=== PATIENT | male | born 1940 | race Caucasian/White ===

== ENCOUNTER 2021-09-14 09:25 | Inpatient (IN) | payer MEDICARE, OTHER ==
[~2021-09-14] VITALS: Ht 165 cm; Wt 90.0 kg
[2021-09-14] MEDS ORDERED: NS IV 1000 ML 1,000 ML IV STA ×2 (09:37→11:39)
[2021-09-14] MEDS ORDERED: PANTOPRAZOLE 40 MG (PROTONIX) VIAL IV STA (09:37)
[2021-09-14] MEDS ORDERED: fentaNYL INJ 100 MCG/2 ML AMP IVP STA ×3 (09:37→12:45)
[2021-09-14] MEDS ORDERED: ONDANSETRON 4 MG/2 ML (SDV) Z0FRAN IVP STA (09:37)
--- NOTE | 2021-09-14 09:50 | ED GI ---
General Chief Complaint: Abdominal/GI Problems Stated Complaint: ABD PAIN Source of Information: Patient History of Present Illness Date Seen by Provider: Sep 14, 2021 Time Seen by Provider: 09:29 Initial Comments 80-year-old male presenting with complaints of diffuse abdominal pain, nausea, vomiting present x2 days. He denies fever or chills. He states he has not been able to keep even water down. He has a history of high blood pressure and neuropathy. He denies any past surgeries to his abdomen. He had a small bowel movement yesterday morning but has had no bowel movement since then and states he has been passing only very small amounts of gas. He has had decreased urine output since he is not drinking as much fluid. He denies any pain or burning with urination. He denied having any black or tarry stools. He has had no blood in his urine. He denies having any chest pain. He denies having symptoms like this in the past. He initially thought it might be food poisoning from eating some [place] food on Saturday night however no one else that ate the food had any issues. Timing/Duration: 1-2 Days Severity/Quality: Severe, Aching Location: Generalized Abdomen Activities at Onset: None Modifying Factors: Worsens With Movement, Worsens With Palpation Associated Symptoms: No Back Pain, No Chest Pain, No Diaphoresis, No Fever/Chills, No Fatigue, No Headache, No Heartburn; Nausea/Vomiting; No Rash, No Shortness of Air, No Swelling/Mass in Abdomen, No Syncope, No Weakness Allergies and Home Medications Allergies Coded Allergies: No Known Drug Allergies (Unverified , 09/14/21) Patient Home Medication List Home Medication List Reviewed: Yes Amlodipine Besylate (Amlodipine Besylate) 10 Mg Tablet, 10 MG PO DAILY, (Reported) Entered as Reported by: PHU SUAREZ on 09/14/21 1045 Last Action: Reviewed Gabapentin (Neurontin) 300 Mg Capsule, 600 MG PO DAILY, (Reported) Entered as Reported by: BHAVANA SPEARS on 09/14/211511 Last Action: Reviewed Omeprazole Magnesium (Prilosec Otc) 20 Mg Tablet.dr, 20 MG PO DAILY, (Reported) Entered as Reported by: BHAVANA SPEARS on 09/14/211511 Last Action: Reviewed Oxycodone HCl (Oxycodone HCl) 5 Mg Tablet, 5 MG PO BID PRN for PAIN-SEVERE (8- 10), (Reported) Entered as Reported by: BHAVANA SPEARS on 09/14/211511 Last Action: Reviewed Vit A/Vit C/Vit E/Zinc/Copper (Eye Multivitamin Tablet) 1 Each Tablet, 1 EACH PO DAILY, (Reported) Entered as Reported by: BHAVANA SPEARS on 09/14/211511 Last Action: Reviewed Discontinued Medications Gabapentin (Gabapentin) 300 Mg/6 Ml Solution, 300 MG PO, (Reported) Discontinued Reason: No Longer Taking Entered as Reported by: PHU SUAREZ on 09/14/211044 Last Action: Discontinued Omeprazole Magnesium (Prilosec) 10 Mg Suspdr.pkt, 10 MG PO, (Reported) Discontinued Reason: Prescription changed Entered as Reported by: PHU SUAREZ on 09/14/211044 Last Action: New Order Oxycodone HCl/Acetaminophen (Oxycodone-Acetaminophen 5-325) 1 Each Tablet, 1 EACH PO Q4H PRN for PAIN-SEVERE, (Reported) Discontinued Reason: No Longer Taking Entered as Reported by: PHU SUAREZ on 09/14/211044 Last Action: Discontinued Review of Systems Review of Systems Constitutional: No chills, No fever EENTM: No Symptoms Reported Respiratory: No Symptoms Reported Cardiovascular: No Symptoms Reported Gastrointestinal: See HPI Genitourinary: See HPI Musculoskeletal: no symptoms reported Skin: no symptoms reported Psychiatric/Neurological: See HPI Past Kjkjrss-Zizbbt-Komqsn Hx Patient Social History Tobacco Use?: No Use of E-Cig and/or Vaping dev: No Substance use?: No Alcohol Use?: Yes Alcohol type: Beer, Hard Liquor Alcohol Frequency: Daily Pt feels they are or have been: No Immunizations Up To Date First/Initial COVID19 Vaccinat: NOV 2020 Second COVID19 Vaccination Luis: DEC 2020 COVID19 Vaccine Mechanic Senior: ELIE Past Medical History Surgery/Hospitalization HX: HTN, NEUROPATHY Surgeries: Yes Orthopedic (hip and lumbar spine) Respiratory: No Cardiac: Yes Hypertension Neurological: Yes Neuropathy Genitourinary: No Gastrointestinal: No Musculoskeletal: Yes Arthritis Endocrine: No HEENT: No Cancer: No Psychosocial: No Physical Exam Vital Signs Vital Signs - First Documented 09/14/21 09:30 Temp 36.3 Pulse 99 Resp 18 B/P (MAP) 175/84 (114) Pulse Ox 94 O2 Delivery Room Air Capillary Refill : Height/Weight/BMI Height: '" Weight: lbs. oz. 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 Focused Exam Lactate Level 09/14/21 09:40: Lactic Acid Level 1.60 Lactic Acid Level Laboratory Tests Test 09/14/21 09:40 Lactic Acid Level 1.60 MMOL/L (0.50-2.00) Progress/Results/Core Measures Results/Orders Lab Results Laboratory Tests Test 09/14/21 09:40 09/14/21 10:04 Range/Units White Blood Count 11.1 H 4.3-11.0 10^3/uL Red Blood Count 4.90 4.30-5.52 10^6/uL Hemoglobin 15.3 13.3-17.7 g/dL Hematocrit 45 40-54 % Mean Corpuscular Volume 92 80-99 fL Mean Corpuscular Hemoglobin 31 25-34 pg Mean Corpuscular Hemoglobin Concent 34 32-36 g/dL Red Cell Distribution Width 14.5 10.0-14.5 % Platelet Count 217 130-400 10^3/uL Mean Platelet Volume 9.5 9.0-12.2 fL Immature Granulocyte % (Auto) 0 % Neutrophils (%) (Auto) 61 42-75 % Lymphocytes (%) (Auto) 34 12-44 % Monocytes (%) (Auto) 4 0-12 % Eosinophils (%) (Auto) 0 0-10 % Basophils (%) (Auto) 0 0-10 % Neutrophils # (Auto) 6.8 1.8-7.8 X 10^3 Lymphocytes # (Auto) 3.8 1.0-4.0 X 10^3 Monocytes # (Auto) 0.5 0.0-1.0 X 10^3 Eosinophils # (Auto) 0.0 0.0-0.3 10^3/uL Basophils # (Auto) 0.0 0.0-0.1 10^3/uL Immature Granulocyte # (Auto) 0.0 0.0-0.1 10^3/uL Prothrombin Time 12.5 12.2-14.7 SEC INR Comment 0.9 0.8-1.4 Activated Partial Thromboplast Time 30 24-35 SEC Sodium Level 140 135-145 MMOL/L Potassium Level 4.0 3.6-5.0 MMOL/L Chloride Level 102 98-107 MMOL/L Carbon Dioxide Level 25 21-32 MMOL/L Anion Gap 13 5-14 MMOL/L Blood Urea Nitrogen 14 7-18 MG/DL Creatinine 0.71 0.60-1.30 MG/DL Estimat Glomerular Filtration Rate 106 BUN/Creatinine Ratio 20 Glucose Level 152 H 70-105 MG/DL Lactic Acid Level 1.60 0.50-2.00 MMOL/L Calcium Level 9.9 8.5-10.1 MG/DL Corrected Calcium 8.5-10.1 MG/DL Total Bilirubin 1.0 0.1-1.0 MG/DL Aspartate Amino Transf (AST/SGOT) 19 5-34 U/L Alanine Aminotransferase (ALT/SGPT) 19 0-55 U/L Alkaline Phosphatase 62 40-136 U/L Troponin I < 0.30 <0.30 NG/ML Total Protein 6.7 6.4-8.2 GM/DL Albumin 4.6 H 3.2-4.5 GM/DL Lipase 19 8-78 U/L Serum Alcohol < 10 <10 MG/DL Urine Color YELLOW Urine Clarity CLOUDY Urine pH 5.5 5-9 Urine Specific [place] >=1.030 1.016-1.022 Urine Protein 1+ H NEGATIVE Urine Glucose (UA) NEGATIVE NEGATIVE Urine Ketones 2+ H NEGATIVE Urine Nitrite POSITIVE H NEGATIVE Urine Bilirubin NEGATIVE NEGATIVE Urine Urobilinogen 0.2 < = 1.0 MG/DL Urine Leukocyte Esterase TRACE H NEGATIVE Urine RBC (Auto) NEGATIVE NEGATIVE Urine RBC NONE /HPF Urine WBC 50-100 H /HPF Urine Squamous Epithelial Cells RARE /HPF Urine Crystals NONE /LPF Urine Bacteria LARGE H /HPF Urine Casts NONE /LPF Urine Mucus LARGE H /LPF Urine Culture Indicated YES My Orders Orders - LINDSEY LINDSAY MD Comprehensive Metabolic Panel (09/14/21 09:37) Lipase (09/14/21 09:37) Ua Culture If Indicated (09/14/21 09:37) Ed Iv/Invasive Line Start (09/14/21 09:37) Cbc With Automated Diff (09/14/21 09:37) Ct Abdomen/Pelvis W (09/14/21 09:37) Lactic Acid Analyzer (09/14/21 09:37) Protime With Inr (09/14/21:37) Partial Thromboplastin Time (09/14/21 09:37) Ns Iv 1000 Ml (Sodium Chloride 0.9%) (09/14/21 09:37) Ondansetron Injection (Zofran Injectio (09/14/21 09:37) Pantoprazole Injection (Protonix Injecti (09/14/21 09:37) Fentanyl Inj (Sublimaze Injection) (09/14/21 09:37) Alcohol (09/14/21 09:37) Ekg Tracing (09/14/21 09:37) Monitor-Rhythm Ecg Trace Only (09/14/21 09:37) Troponin I Fs (09/14/21 09:37) Iohexol Injection (Omnipaque 350 Mg/Ml 1 (09/14/21 10:30) Received Contrast (Hold Metformin- Contr (09/14/21 10:30) Sodium Chloride Flush (Catheter Flush Sy (09/14/21 10:30) Ns (Ivpb) (Sodium Chloride 0.9% Ivpb Bag (09/14/21 10:30) Urine Culture (09/14/21 10:04) Ceftriaxone (Rocephin) (09/14/21 11:39) Ns Iv 1000 Ml (Sodium Chloride 0.9%) (09/14/21 11:39) Fentanyl Inj (Sublimaze Injection) (09/14/21 11:39) Ng Tube Insert & Assessment (09/14/21 11:39) Ng Tube To Low Wall Suction (09/14/21 11:39) Metoclopramide Injection (Reglan Injecti (09/14/21 12:02) Chest 1 View Ap/Pa Only (09/14/21 12:05) Abdomen (Kub) 1 View (09/14/21 12:12) Fentanyl Inj (Sublimaze Injection) (09/14/21 12:45) Medications Given in ED Current Medications Medications Dose Ordered Sig/Sherlyn Route Start Time Stop Time Status Last Admin Dose Admin Iohexol 100 ml ONCE ONCE IV 09/14/21 10:30 09/14/21 10:31 DC 09/14/21 10:38 100 ML Sodium Chloride 10 ml NEEDED PRN IV 09/14/21 10:30 09/14/21 14:11 DC 09/14/21 10:38 10 ML Sodium Chloride 100 ml ONCE ONCE IV 09/14/21 10:30 09/14/21 10:31 DC 09/14/21 10:38 100 ML Vital Signs/I&O 09/14/21 09/14/21 09:30 12:29 Temp 36.3 36.0 Pulse 99 90 Resp 18 18 B/P (MAP) 175/84 (114) 166/87 Pulse Ox 94 95 O2 Delivery Room Air Room Air Progress Progress Note #1: Progress Note Obtain labs, urine, ECG to evaluate for possible cardiac source of symptoms with hx of hypertension. CT scan of abdomen/pelvis to look for obstruction, infection, diverticulitis, appendicitis, cholecystitis, colitis, pyelonephritis. Give IVF for hydration, Zofran for nausea, Pantoprazole for gastric irritation from his vomiting, Fentanyl for pain. Progress Note #2: Time: 10:21 Progress Note CBC shows the white blood cell count at the upper limit of normal at 11.1. He has no acute significant normality on his chemistry panel, but his glucose was slightly up at 152. Troponin is <0.3. His alcohol level was zero. His electrocardiogram showed a sinus or ectopic atrial rhythm but he had multiform PVCs. After medications and treatment in the ED he states that his pain has improved down to 2 or 3 out of 10. Awaiting UA results. Pt going to CT scan now. Progress Note #3: Time: 10:39 Progress Note Urinalysis shows he is dehydrated with elevated specific gravity > 1.030 and ketones, signs of infection with Nit, LE, WBC and Large amount of bacteria. Culture was reflexed. Awaiting CT scan results but will start antibiotic for his UTI. He has normal Lactic acid of 1.6. Progress Note #4: Time: 11:[address] scan shows findings for small bowel obstruction with transition point. He has cecum attachment to LUQ instead of RLQ. Will update pt and family. Will again check about any surgery to abdomen. Anticipate admit to [facility]. When reviewing results with the patient and his family he again denied any history of surgery. He states that he had a procedure while he was in the [employer] where they had put a tube in his stomach for something. He reported that when I describe the NG tube and how that was placed and it's purpose. We will repeat fentanyl 50 mcg to help with pain prior to placement of the NG tube. Will call Dr. Romero with the hospitalist service about admission Progress Note #5: Time: 11:51 Progress Note Discussed with Dr. Romero for the hospitalist service and she accepted the patient for admission. She stated that she would call Dr. Fink the surgeon food concession manager about consult. Will continue with nothing by mouth and give patient IV fluids for hydration. He did have some difficulty with trying to advance the NG tube past the GE junction. He was having gagging and dry heaves when attempting to do this so given a dose of Reglan. Repeat dose of Fentanyl given prior to transport with EMS. His requested that we call [employer], his insurance company, about the ED visit and admit since that is what it told her to do on the back of his i nsurance card. However, after being on hold for extended period of time I finally reached client support professional for [employer] and they advised me that with him being out of [facility] receiving care they did not need to speak with me. The first person I spoke with transferred me to [facility] and they told me that the admitting office of the hospital, once he was admitted would need to be the ones to contact them about the case for the patient. I passed this information on to the nurses so they could let admitting know. Initial ECG Impression Date: Sep 14, 2021 Initial ECG Impression Time: 10:00 Initial ECG Rate: 86 Initial ECG Rhythm: Normal Sinus Initial ECG Comparisson: No Previous ECG Available Comment Sinus or ectopic atrial rhythm of 86 bpm. Prolonged GA interval of 249 ms. Multiform PVCs. QT interval 434 ms with a QTc interval 519 ms. Right bundle branch block with a left anterior fascicular block. He appears to have a sinus pause. There is no acute ST elevation. He has no prior tracing available for comparison. Diagnostic Imaging Diagonstic Imaging: CT Plain Films/CT/US/NM/MRI: abdomen, pelvis Comments NAME: [facility] REC#: [id number] PT STATUS: REG ER : 1940 PHYSICIAN: LINDSEY LINDSAY MD ADMIT DATE: 09/14/21/ER FS Draft Date of Exam:09/14/21 CT ABDOMEN/PELVIS W CT ABDOMEN/PELVIS W TECHNIQUE: Multiple contiguous axial images were obtained through the abdomen and pelvis after administration of intravenous contrast. All CT scans use one or more of the following dose optimizing techniques: automated exposure control, MA and/or KvP adjustment based on patient size and exam type or iterative reconstruction. INDICATION: Nausea vomiting COMPARISON: None available. FINDINGS: Lower chest: Trace right pleural effusion with minimal right basilar subsegmental atelectasis. Peritoneum: Small volume of free fluid is present with the abdomen, predominantly under the right hemidiaphragm. No free intraperitoneal air. Liver and biliary system: The liver is normal. The gallbladder is normal. No biliary duct dilation. Spleen and Pancreas: Spleen is normal. The pancreas enhances normally without mass lesion or peripancreatic inflammatory changes. Adrenals: Normal. tract: The kidneys enhance normally without suspicious mass or obstruction. Urinary bladder is distended without wall thickening. Prostate is borderline enlarged. GI tract: Moderate sized hiatal hernia. Small bowel loops are fluid-filled and dilated measuring up to 3.5 cm. There is likely a transition point in the left upper quadrant Colon is decompressed. The appendix is not visualized. Vasculature and Lymph nodes: Normal caliber aorta. No abdominal or pelvic lymphadenopathy. Musculoskeletal: No concerning osseous lesion. IMPRESSION: 1. Small bowel obstruction with transition point in the left upper quadrant. The distal small bowel loops are decompressed. Of note, the cecum does not have its normal attachment in the right lower quadrant and is positioned in the right upper quadrant. 2. No perforation or abscess. Dictated on workstation # [id number] Dict: 09/14/21 1049 Trans: 09/14/21 1110 [facility] [id number] Interpreted by: JOSH SHAVER MD Electronically signed by: Reviewed: Reviewed by Wi Diagonstic Imaging: Xray Plain Films/CT/US/NM/MRI: chest, abdomen Comments [facility] [place] NAME: [facility]ETT [facility] REC#: [id number] PT STATUS: REG ER : 1940 PHYSICIAN: LINDSEY LINDSAY MD ADMIT DATE: 09/14/21/ER FS Signed Date of Exam:09/14/21 CHEST 1 VIEW AP/PA ONLY INDICATION: Check NG tube placement EXAMINATION: Chest 09/14/2021 FINDINGS: There is a feeding tube with the tip likely at the junction of the esophagus and stomach. Continued advancement is advised. Heart is unremarkable. Pulmonary vasculature normal. There is bibasal atelectasis. No effusions. No pneumothorax. IMPRESSION: 1. Bibasilar atelectasis with otherwise no acute cardiopulmonary process. 2. Feeding tube tip appears to lie at the GE junction. Dictated by: Dictated on workstation # [id number] Dict: 09/14/21 1231 Trans: 09/14/21 1325 [facility] [id number] Interpreted by: NORMA ALANIS MD Electronically signed by: NORMA ALANIS MD 09/14/21 1325 [facility] [place] NAME: [facility]MMETT [facility] REC#: [id number] PT STATUS: ADM IN : 1940 PHYSICIAN: LINDSEY LINDSAY MD ADMIT DATE: 09/14/21 Signed Date of Exam:09/14/21 ABDOMEN (KUB) 1 VIEW INDICATION: Verify NG tube placement. COMPARISON: Imaging from the same date. TECHNIQUE: Single radiograph of the upper abdomen with two different techniques is obtained dated 09/14/2021. FINDINGS: Enteric catheter is present with the distal tip extending to the expected location of the GE junction with the sidehole within the distal esophagus. Loops of dilated bowel are noted within the upper abdomen. Postsurgical changes within the lumbar spine. Scattered osseous degenerative changes without acute osseous abnormality. IMPRESSION: Enteric catheter is present with the distal tip near the GE junction and the sidehole overlying the distal esophagus. Advancement of approximately 11 cm is recommended so that the sidehole and distal tip are within the stomach. Persistent dilated loops of bowel, concerning for bowel obstruction. Dictated by: Dictated on workstation # [id number] Dict: 09/14/21 1236 Trans: 09/14/21 1454 [id number] Interpreted by: ADRIAN BECKER MD Electronically signed by: ADRIAN BECKER MD 09/14/21 1454 Reviewed: Reviewed by Me Departure Communication (Admissions) Time/Spoke to Admitting Phy: 11:51 d/w Dr. Romero and will admit to Hospitalist service for small bowel obstruction and UTI. Since he has had some PVCs will monitor on telemetry as well. She will contact Dr. Fink about consult for the patient. Impression Primary Impression: Small bowel obstruction Additional Impressions: Acute cystitis without hematuria Diffuse abdominal pain Nausea and vomiting in adult patient Disposition: 30 STILL A PATIENT Condition: Stable Admissions Decision to Admit Reason: Admit from ER (General) Decision to Admit/Date: Sep 14, 2021 Time/Decision to Admit Time: 11:51 Departure-Patient Inst. Referrals: NO,LOCAL PHYSICIAN (PCP/Family) Primary Care Physician LINDSEY LINDSAY MD Sep 14, 2021 09:50
[2021-09-14 10:09] LABS: HEMATOCRIT 45 % (40-54); HEMOGLOBIN 15.3 g/dL (13.3-17.7); MEAN CORPUSCULAR HEMOGLOBIN 31 pg (25-34); MEAN CORPUSCULAR HGB CONC 34 g/dL (32-36); MEAN CORPUSCULAR VOLUME 92 fL (80-99); MEAN PLATELET VOLUME 9.5 fL (9.0-12.2); PLATELET COUNT 217 10^3/uL (130-400); WHITE BLOOD COUNT 11.1 10^3/uL (4.3-11.0)
[2021-09-14 10:10] LABS: BASOPHILS % (AUTO) 0 % (0-10); EOSINOPHILS % (AUTO) 0 % (0-10); LYMPHOCYTES # (AUTO) 3.8 X 10^3 (1.0-4.0); LYMPHOCYTES % (AUTO) 34 % (12-44); MONOCYTES # (AUTO) 0.5 X 10^3 (0.0-1.0); MONOCYTES % (AUTO) 4 % (0-12); NEUTROPHILS # (AUTO) 6.8 X 10^3 (1.8-7.8); NEUTROPHILS % (AUTO) 61 % (42-75)
[2021-09-14 10:14] LABS: INR 0.9 (0.8-1.4); PROTHROMBIN TIME PATIENT 12.5 SEC (12.2-14.7)
[2021-09-14 10:18] LABS: BUN/CREATININE RATIO 20; CARBON DIOXIDE 25 MMOL/L (21-32); CHLORIDE 102 MMOL/L (98-107); CREATININE SERUM 0.71 MG/DL (0.60-1.30); GFR ESTIMATED 106; GLUCOSE 152 MG/DL (70-105); SODIUM 140 MMOL/L (135-145)
[2021-09-14 10:19] LABS: ALANINE AMINOTRANSFERASE 19 U/L (0-55); ALBUMIN 4.6 GM/DL (3.2-4.5); ALKALINE PHOSPHATASE 62 U/L (40-136); CALCIUM 9.9 MG/DL (8.5-10.1); LIPASE 19 U/L (8-78); TOTAL PROTEIN 6.7 GM/DL (6.4-8.2)
[2021-09-14 10:26] LABS: BILIRUBIN,URINE NEGATIVE (NEGATIVE); CLARITY,URINE CLOUDY; COLOR,URINE YELLOW; GLUCOSE, URINE (UA) NEGATIVE (NEGATIVE); KETONES,URINE 2+ (NEGATIVE); LEUKOCYTE ESTERASE ,URINE TRACE (NEGATIVE); NITRITE,URINE POSITIVE (NEGATIVE); PH,URINE 5.5 (5-9); PROTEIN,URINE 1+ (NEGATIVE)
[2021-09-14] MEDS ORDERED: CATHETER FLUSH 10 ML SYR IV PRN ×2 (10:30→14:15)
[2021-09-14] MEDS ORDERED: IOHEXOL 350 MG/ML 100 ML (OMNIPAQUE 350) VIAL IV ONE (10:30)
[2021-09-14] MEDS ORDERED: HOLD METFORMIN - RECEIVED CONTRAST 20 ML VIAL IV SCH (10:30)
[2021-09-14] MEDS ORDERED: NS 100 ML (IVPB) BAG IV ONE (10:30)
[2021-09-14 10:33] LABS: BACTERIA,URINE LARGE /HPF; SQUAMOUS EPITHELIAL CELL,UR RARE /HPF; WBC,URINE 50-100 /HPF
[2021-09-14] MEDS ORDERED: AMLO-251 PO (10:45)
[2021-09-14] MEDS ORDERED: OXYC1TAB11 PO (10:45)
[2021-09-14] MEDS ORDERED: OMEP10SU2 PO (10:45)
[2021-09-14] MEDS ORDERED: GABA300S2 PO (10:45)
--- NOTE | 2021-09-14 11:11 | Diagnostic Imaging Report ---
CT ABDOMEN/PELVIS W TECHNIQUE: Multiple contiguous axial images were obtained through the abdomen and pelvis after administration of intravenous contrast. All CT scans use one or more of the following dose optimizing techniques: automated exposure control, MA and/or KvP adjustment based on patient size and exam type or iterative reconstruction. INDICATION: Nausea vomiting COMPARISON: None available. FINDINGS: Lower chest: Trace right pleural effusion with minimal right basilar subsegmental atelectasis. Peritoneum: Small volume of free fluid is present with the abdomen, predominantly under the right hemidiaphragm. No free intraperitoneal air. Liver and biliary system: The liver is normal. The gallbladder is normal. No biliary duct dilation. Spleen and Pancreas: Spleen is normal. The pancreas enhances normally without mass lesion or peripancreatic inflammatory changes. Adrenals: Normal. tract: The kidneys enhance normally without suspicious mass or obstruction. Urinary bladder is distended without wall thickening. Prostate is borderline enlarged. GI tract: Moderate sized hiatal hernia. Small bowel loops are fluid-filled and dilated measuring up to 3.5 cm. There is likely a transition point in the left upper quadrant Colon is decompressed. The appendix is not visualized. Vasculature and Lymph nodes: Normal caliber aorta. No abdominal or pelvic lymphadenopathy. Musculoskeletal: No concerning osseous lesion. IMPRESSION: 1. Small bowel obstruction with transition point in the left upper quadrant. The distal small bowel loops are decompressed. Of note, the cecum does not have its normal attachment in the right lower quadrant and is positioned in the right upper quadrant. 2. No perforation or abscess. Dictated by: Dictated on workstation # [id number]
[2021-09-14] MEDS ORDERED: cefTRIAXone 1,000 MG in WATER (STERILE) FOR INJECTION 10 ML IV STA (11:39)
[2021-09-14] MEDS ORDERED: METOCLOPRAMIDE INJ 10 MG/2 ML (REGLAN) IVP STA (12:02)
--- NOTE | 2021-09-14 12:34 | Diagnostic Imaging Report ---
INDICATION: Check NG tube placement EXAMINATION: Chest 09/14/2021 FINDINGS: There is a feeding tube with the tip likely at the junction of the esophagus and stomach. Continued advancement is advised. Heart is unremarkable. Pulmonary vasculature normal. There is bibasal atelectasis. No effusions. No pneumothorax. IMPRESSION: 1. Bibasilar atelectasis with otherwise no acute cardiopulmonary process. 2. Feeding tube tip appears to lie at the GE junction. Dictated by: Dictated on workstation # [id number]
--- NOTE | 2021-09-14 12:43 | Diagnostic Imaging Report ---
INDICATION: Verify NG tube placement. COMPARISON: Imaging from the same date. TECHNIQUE: Single radiograph of the upper abdomen with two different techniques is obtained dated 09/14/2021. FINDINGS: Enteric catheter is present with the distal tip extending to the expected location of the GE junction with the sidehole within the distal esophagus. Loops of dilated bowel are noted within the upper abdomen. Postsurgical changes within the lumbar spine. Scattered osseous degenerative changes without acute osseous abnormality. IMPRESSION: Enteric catheter is present with the distal tip near the GE junction and the sidehole overlying the distal esophagus. Advancement of approximately 11 cm is recommended so that the sidehole and distal tip are within the stomach. Persistent dilated loops of bowel, concerning for bowel obstruction. Dictated by: Dictated on workstation # [id number]
[2021-09-14 13:52] VITALS: BP 192/87
--- NOTE | 2021-09-14 14:46 | Consultation - Surgery ---
KRYSTIN SZYMANSKI MED STUDENT 09/14/21 1446: History of Present Illness History of Present Illness Patient Consulted On(jimy/time) 09/14/21 14:40 Date Seen by Provider: Sep 14, 2021 Time Seen by Provider: 14:30 Reason for Visit: abdominal pain, n/v History of Present Illness Patient is 80 year male who presents with abdominal pain for 2 days, with subsequent nausea with vomiting, but "mostly dry heaving due to not eating. He describes his pain as wax and waning between a 3 and 9/10. When it is severe it is sharp. It is mostly infraumbillical radiating across his lower abdomen. He denies having anything like this before, he has never had surgery on his abdomen before. Nothing seems to make the pain better or worse. He has not been passing gas or had a bowel movement since saturday. He has had decrease in urinary output, but denies hematuria. Allergies and Home Medications Allergies Coded Allergies: No Known Drug Allergies (Unverified , 09/14/21) Patient Home Medication List Home Medication List Reviewed: Yes Amlodipine Besylate (Amlodipine Besylate) 10 Mg Tablet, 10 MG PO DAILY, (Reported) Entered as Reported by: PHU SUAREZ on 09/14/21 1045 Last Action: Reviewed Gabapentin (Neurontin) 300 Mg Capsule, 600 MG PO DAILY, (Reported) Entered as Reported by: BHAVANA SPEARS on 09/14/211511 Last Action: Reviewed Omeprazole Magnesium (Prilosec Otc) 20 Mg Tablet.dr, 20 MG PO DAILY, (Reported) Entered as Reported by: BHAVANA SPEARS on 09/14/211511 Last Action: Reviewed Oxycodone HCl (Oxycodone HCl) 5 Mg Tablet, 5 MG PO BID PRN for PAIN-SEVERE (8- 10), (Reported) Entered as Reported by: BHAVANA SPEARS on 09/14/211511 Last Action: Reviewed Vit A/Vit C/Vit E/Zinc/Copper (Eye Multivitamin Tablet) 1 Each Tablet, 1 EACH PO DAILY, (Reported) Entered as Reported by: BHAVANA SPEARS on 09/14/211511 Last Action: Reviewed Discontinued Medications Gabapentin (Gabapentin) 300 Mg/6 Ml Solution, 300 MG PO, (Reported) Discontinued Reason: No Longer Taking Entered as Reported by: PHU SUAREZ on 09/14/211044 Last Action: Discontinued Omeprazole Magnesium (Prilosec) 10 Mg Suspdr.pkt, 10 MG PO, (Reported) Discontinued Reason: Prescription changed Entered as Reported by: PHU SUAREZ on 09/14/211044 Last Action: New Order Oxycodone HCl/Acetaminophen (Oxycodone-Acetaminophen 5-325) 1 Each Tablet, 1 EACH PO Q4H PRN for PAIN-SEVERE, (Reported) Discontinued Reason: No Longer Taking Entered as Reported by: PHU SUAREZ on 09/14/211044 Last Action: Discontinued Past Cqyrugo-Vndwbz-Keyfmj Hx Patient Social History Smoking Status: Former Smoker Former Smoker, Quit: Sep 11, 1991 Type Used: Cigarettes Alcohol Use?: Yes (everyday 3 shots) Have you traveled recently?: Yes Surgeries Surgeries: Joint Replacement (left hip), Orthopedic (back) Respiratory History of Respiratory Disorde: No Cardiovascular History of Cardiac Disorders: Yes Cardiac Disorders: Hypertension Neurological History of Neurological Disord: Yes Neurological Disorders: Neuropathy Gastrointestinal History of Gastrointestinal Di: Yes Gastrointestinal Disorders: Gastroesophageal Reflux Musculoskeletal History of Musculoskeletal Dis: Yes Musculoskeletal Disorders: Arthritis (right wrist) Endocrine History of Endocrine Disorders: No HEENT History of HEENT Disorders: No Cancer History of Cancer: No Psychosocial History of Psychiatric Problem: No Integumentary History of Skin or Integumenta: No Family Medical History Significant Family History: CAD Over 55 Years Old (brother) Review of Systems-General Constitutional: No chills, No fever, No weakness EENTM: No blurred vision, No nose congestion Respiratory: No cough, No short of breath Cardiovascular: No chest pain Gastrointestinal: abdominal pain, constipation, nausea, vomiting Genitourinary: decreased output; No hematuria Musculoskeletal: back pain, joint pain Skin: No dryness, No lesions; lumps (right wrist) Physical Exam-General Problems Physical Exam Vital Signs Vital Signs - First Documented 09/14/21 09:30 Temp 36.3 Pulse 99 Resp 18 B/P (MAP) 175/84 (114) Pulse Ox 94 O2 Delivery Room Air Capillary Refill : Less Than 3 Seconds General Appearance: WD/WN, mild distress Eyes: Bilateral Eye Normal Inspection, Bilateral Eye PERRL, Bilateral Eye EOMI HEENT: TMs normal, pharynx normal Neck: non-tender, supple, normal inspection Respiratory: chest non-tender, lungs clear, normal breath sounds, no respiratory distress, no accessory muscle use Cardiovascular: regular rate, rhythm, no murmur Peripheral Pulses: 2+ Radial Pulses (R), 2+ Radial Pulses (L) Gastrointestinal: other (abdomen is mildly distended, tympanic, ttp in lower abdomen, no rebound or guarding, nonperitoneal) Rectal: deferred Back: no CVA tenderness, no vertebral tenderness Extremities: normal capillary refill, pedal edema, other (decreased muscle strenght in left hand, large lump jovi right wrist joint) Neurologic/Psychiatric: 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, alert, normal mood/affect, oriented x 3 Skin: normal color, warm/dry; No rash Lymphatic: no adenopathy (cervical, axilla, groin) Data Review Labs Laboratory Tests 09/14/21 09:40: White Blood Count 11.1H, Red Blood Count 4.90, Hemoglobin 15.3, Hematocrit 45, Mean Corpuscular Volume 92, Mean Corpuscular Hemoglobin 31, Mean Corpuscular Hemoglobin Concent 34, Red Cell Distribution Width 14.5, Platelet Count 217, Mean Platelet Volume 9.5, Immature Granulocyte % (Auto) 0, Neutrophils (%) (Auto) 61, Lymphocytes (%) (Auto) 34, Monocytes (%) (Auto) 4, Eosinophils (%) (Auto) 0, Basophils (%) (Auto) 0, Neutrophils # (Auto) 6.8, Lymphocytes # (Auto) 3.8, Monocytes # (Auto) 0.5, Eosinophils # (Auto) 0.0, Basophils # (Auto) 0.0, Immature Granulocyte # (Auto) 0.0, Prothrombin Time 12.5, INR Comment 0.9, Activated Partial Thromboplast Time 30, Sodium Level 140, Potassium Level 4.0, Chloride Level 102, Carbon Dioxide Level 25, Anion Gap 13, Blood Urea Nitrogen 14, Creatinine 0.71, Estimat Glomerular Filtration Rate 106, BUN/Creatinine Ratio 20, Glucose Level 152H, Lactic Acid Level 1.60, Calcium Level 9.9, Corrected Calcium , Total Bilirubin 1.0, Aspartate Amino Transf (AST/SGOT) 19, Alanine Aminotransferase (ALT/SGPT) 19, Alkaline Phosphatase 62, Troponin I < 0.30, Total Protein 6.7, Albumin 4.6H, Lipase 19, Serum Alcohol < 10 09/14/21 10:04: Urine Color YELLOW, Urine Clarity CLOUDY, Urine pH 5.5, Urine Specific [place] >=1.030, Urine Protein 1+H, Urine Glucose (UA) NEGATIVE, Urine Ketones 2+H, Urine Nitrite POSITIVEH, Urine Bilirubin NEGATIVE, Urine Urobilinogen 0.2, Urine Leukocyte Esterase TRACEH, Urine RBC (Auto) NEGATIVE, Urine RBC NONE, Urine WBC 50-100H, Urine Squamous Epithelial Cells RARE, Urine Crystals NONE, Urine Bacteria LARGEH, Urine Casts NONE, Urine Mucus LARGEH, Urine Culture Indicated YES Radiology Date of Exam:09/14/21 CT ABDOMEN/PELVIS W CT ABDOMEN/PELVIS W TECHNIQUE: Multiple contiguous axial images were obtained through the abdomen and pelvis after administration of intravenous contrast. All CT scans use one or more of the following dose optimizing techniques: automated exposure control, MA and/or KvP adjustment based on patient size and exam type or iterative reconstruction. INDICATION: Nausea vomiting COMPARISON: None available. FINDINGS: Lower chest: Trace right pleural effusion with minimal right basilar subsegmental atelectasis. Peritoneum: Small volume of free fluid is present with the abdomen, predominantly under the right hemidiaphragm. No free intraperitoneal air. Liver and biliary system: The liver is normal. The gallbladder is normal. No biliary duct dilation. Spleen and Pancreas: Spleen is normal. The pancreas enhances normally without mass lesion or peripancreatic inflammatory changes. Adrenals: Normal. tract: The kidneys enhance normally without suspicious mass or obstruction. Urinary bladder is distended without wall thickening. Prostate is borderline enlarged. GI tract: Moderate sized hiatal hernia. Small bowel loops are fluid-filled and dilated measuring up to 3.5 cm. There is likely a transition point in the left upper quadrant Colon is decompressed. The appendix is not visualized. Vasculature and Lymph nodes: Normal caliber aorta. No abdominal or pelvic lymphadenopathy. Musculoskeletal: No concerning osseous lesion. IMPRESSION: 1. Small bowel obstruction with transition point in the left upper quadrant. The distal small bowel loops are decompressed. Of note, the cecum does not have its normal attachment in the right lower quadrant and is positioned in the right upper quadrant. 2. No perforation or abscess. Date of Exam:09/14/21 CHEST 1 VIEW AP/PA ONLY INDICATION: Check NG tube placement EXAMINATION: Chest 09/14/2021 FINDINGS: There is a feeding tube with the tip likely at the junction of the esophagus and stomach. Continued advancement is advised. Heart is unremarkable. Pulmonary vasculature normal. There is bibasal atelectasis. No effusions. No pneumothorax. IMPRESSION: 1. Bibasilar atelectasis with otherwise no acute cardiopulmonary process. 2. Feeding tube tip appears to lie at the GE junction. Dictated by: Dictated on workstation # [id number] Dict: 09/14/21 1231 Trans: 09/14/21 1325 [facility] [id number] Interpreted by: NORMA ALANIS MD Electronically signed by: NORMA ALANIS MD 09/14/21 1321 Assessment/Plan Assessment/Plan Assessment/Plan SBO UTI HTN athirits GERD peripheral neuropathy Everyday alcohol use NPO, IVF @130ml/hr, pain control, anti-emetic, protonix 20mg BID, if possible NGT to suction (currently not able to advance to correct positioning), trend lactic acid, Medicine is primary, appreciate the consult. Reviewed CT and obstruction is substantial, patient is current stable, nonperitoneal, will start with conservative management low threshold for surgical intervention. LIZETTE MEJIA DO 09/14/211930: History of Present Illness History of Present Illness History of Present Illness Patient is an 80-year-old male who presents with abdominal pain for approximately 2 days. He has had some nausea and some emesis. Abdominal pain he states it varies in intensity. Will get up to a 9 out of 10. It is sharp type pain and is around the umbilical area rating across the lower abdomen. Patient has not had any surgical intervention to the abdomen previously he notes. He states that he is unable to pass any flatus and not having a bowel movement since last Saturday. Patient states his abdomen is gotten little bit larger than what it normally is. He has had a decrease in urinary output. He had a CT scan performed which shows findings consistent with a small bowel obst ruction. Allergies and Home Medications Allergies Coded Allergies: No Known Drug Allergies (Unverified , 09/14/21) Patient Home Medication List Home Medication List Reviewed: Yes Amlodipine Besylate (Amlodipine Besylate) 10 Mg Tablet, 10 MG PO DAILY, (Reported) Entered as Reported by: PHU SUAREZ on 09/14/21 2590 Last Action: Reviewed Gabapentin (Neurontin) 300 Mg Capsule, 600 MG PO DAILY, (Reported) Entered as Reported by: BHAVANA SPEARS on 09/14/211511 Last Action: Reviewed Omeprazole Magnesium (Prilosec Otc) 20 Mg Tablet.dr, 20 MG PO DAILY, (Reported) Entered as Reported by: BHAVANA SPEARS on 09/14/211511 Last Action: Reviewed Oxycodone HCl (Oxycodone HCl) 5 Mg Tablet, 5 MG PO BID PRN for PAIN-SEVERE (8- 10), (Reported) Entered as Reported by: BHAVANA SPEARS on 09/14/211511 Last Action: Reviewed Vit A/Vit C/Vit E/Zinc/Copper (Eye Multivitamin Tablet) 1 Each Tablet, 1 EACH PO DAILY, (Reported) Entered as Reported by: BHAVANA SPEARS on 09/14/211511 Last Action: Reviewed Discontinued Medications Gabapentin (Gabapentin) 300 Mg/6 Ml Solution, 300 MG PO, (Reported) Discontinued Reason: No Longer Taking Entered as Reported by: PHU SUAREZ on 09/14/211044 Last Action: Discontinued Omeprazole Magnesium (Prilosec) 10 Mg Suspdr.pkt, 10 MG PO, (Reported) Discontinued Reason: Prescription changed Entered as Reported by: PHU SUAREZ on 09/14/211044 Last Action: New Order Oxycodone HCl/Acetaminophen (Oxycodone-Acetaminophen 5-325) 1 Each Tablet, 1 EACH PO Q4H PRN for PAIN-SEVERE, (Reported) Discontinued Reason: No Longer Taking Entered as Reported by: PHU SUAREZ on 09/14/211044 Last Action: Discontinued Past Taokpxu-Ffylwo-Ithott Hx Reviewed Nursing Assessment Reviewed/Agree w Nursing PMH: Yes Family Medical History Significant Family History: No Pertinent Family Hx, CAD Over 55 Years Old (brother) Review of Systems-General Constitutional: No chills, No fever, No weakness EENTM: No blurred vision, No nose congestion Respiratory: No cough, No short of breath Cardiovascular: No chest pain Gastrointestinal: abdominal pain, constipation, nausea, vomiting Genitourinary: decreased output; No hematuria Musculoskeletal: back pain, joint pain Skin: No dryness, No lesions Psychiatric/Neurological: Denies Anxiety, Denies Depressed, Denies Emotional Problems All Other Systems Reviewed Negative Unless Noted: Yes (Negative excepted noted.) Physical Exam-General Problems Physical Exam General Appearance: WD/WN, no apparent distress HEENT: PERRL/EOMI, normal ENT inspection Neck: non-tender, supple Respiratory: chest non-tender, no respiratory distress, no accessory muscle use Cardiovascular: regular rate, rhythm, no JVD Gastrointestinal: non tender, soft, no organomegaly, other (abdomen is mildly distended, tympanic, ttp in lower abdomen, no rebound or guarding, nonperitoneal) Rectal: deferred Back: no CVA tenderness, no vertebral tenderness Extremities: pedal edema, other (decreased muscle strenght in left hand, large lump along right wrist joint) Neurologic/Psychiatric: 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 Supervisory-Addendum Brief Verification & Attestation Participated in pt care: history, MDM, physical Personally performed: exam, history, MDM, supervision of care Care discussed with: Medical Student Procedures: n/a Results interpretation: Verified all documentation Verification and Attestation of Medical Student E/M Service A medical student performed and documented this service in my presence. I reviewed and verified all information documented by the medical student and made modifications to such information, when appropriate. I personally performed the physical exam and medical decision making. Lizette Mejia, Sep 14, 2021,19:37 KRYSTIN SZYMANSKI MED STUDENT Sep 14, 2021 14:46 LIZETTE MEJIA DO Sep 14, 2021 19:31
[2021-09-14] MEDS: NS IV 1000 ML 1,000 ML IV SCH (15:05)
[2021-09-14] MEDS: fentaNYL INJ 100 MCG/2 ML AMP IV PRN ×3 (15:06→22:54)
[2021-09-14] MEDS ORDERED: GABA300C PO (15:12)
[2021-09-14] MEDS ORDERED: VIT-31 PO (15:12)
[2021-09-14] MEDS ORDERED: OMEP20TA33 PO (15:12)
[2021-09-14] MEDS ORDERED: OXYC5TAB PO (15:12)
[2021-09-14 16:18] VITALS: BP 166/70
--- NOTE | 2021-09-14 16:29 | Diagnostic Imaging Report ---
INDICATION: NG tube placement. FINDINGS: An abdominal film was obtained at 4:23 PM. An NG tube is seen with the tip overlying the distal esophagus. The abdominal bowel gas pattern is nonspecific. There are some mildly prominent small bowel loops in the right side of the abdomen. There is some residual contrast in the bladder. There are postop changes and degenerative findings in the lumbar spine. IMPRESSION: An NG tube is seen with the tip overlying the lower esophagus. This should be advanced and reimaging performed. There are some mildly prominent small bowel loops in the right lower quadrant. Dictated by: Dictated on workstation # [id number]
[2021-09-14] MEDS: METOCLOPRAMIDE INJ 10 MG/2 ML (REGLAN) IV PRN (17:48)
--- NOTE | 2021-09-14 18:09 | Diagnostic Imaging Report ---
INDICATION: Repositioned enteric catheter. COMPARISON: Imaging from the same date. TECHNIQUE: Two radiographs of the upper abdomen and lower chest were obtained dated September 14, 2021 at 1749 hours. FINDINGS: Previously noted enteric catheter has been advanced since the prior examination. Currently, the distal tip overlies the left upper abdomen, likely within the body of the stomach. The catheter appears to be coiled within the upper abdomen, therefore, the sidehole is likely within the stomach as well. Right basilar interstitial pulmonary opacities are again seen. Postsurgical changes and degenerative changes in the lumbar spine are again noted. Remainder of examination appears stable. IMPRESSION: Interval advancement of previously noted enteric catheter, now with the distal tip and sidehole appearing to be within the stomach. Dictated by: Dictated on workstation # [id number]
[2021-09-14 20:19] VITALS: BP 170/76
[2021-09-14 23:30] VITALS: BP 186/79
[2021-09-15] VITALS (12 sets, daily range): BP systolic 121–171; BP diastolic 64–94
[2021-09-15] MEDS: fentaNYL INJ 100 MCG/2 ML AMP IV PRN ×3 (01:29→10:25)
[2021-09-15] MEDS: NS IV 1000 ML 1,000 ML IV SCH ×3 (02:10→22:34)
[2021-09-15 05:41] LABS: BASOPHILS % (AUTO) 0 % (0-10); EOSINOPHILS % (AUTO) 0 % (0-10); HEMATOCRIT 44 % (40-54); HEMOGLOBIN 14.7 g/dL (13.3-17.7); LYMPHOCYTES # (AUTO) 3.9 10^3/uL (1.0-4.0); LYMPHOCYTES % (AUTO) 27 % (12-44); MEAN CORPUSCULAR HEMOGLOBIN 31 pg (25-34); MEAN CORPUSCULAR HGB CONC 33 g/dL (32-36); MEAN CORPUSCULAR VOLUME 93 fL (80-99); MEAN PLATELET VOLUME 9.7 fL (9.0-12.2); MONOCYTES # (AUTO) 1.1 10^3/uL (0.0-1.0); MONOCYTES % (AUTO) 7 % (0-12); NEUTROPHILS # (AUTO) 9.6 10^3/uL (1.8-7.8); NEUTROPHILS % (AUTO) 65 % (42-75); PLATELET COUNT 201 10^3/uL (130-400); WHITE BLOOD COUNT 14.7 10^3/uL (4.3-11.0)
[2021-09-15 06:08] LABS: CALCIUM 8.5 MG/DL (8.5-10.1); CREATININE SERUM 0.71 MG/DL (0.60-1.30); POTASSIUM 3.9 MMOL/L (3.6-5.0)
[2021-09-15 06:20] LABS: LYMPHOCYTES % (MANUAL) 27 %; MONOCYTES % (MANUAL) 7 %; NEUTROPHILS % (MANUAL) 66 %
[2021-09-15] MEDS ORDERED: DIATRIZOATE MEGLUM/SODIUM 37% 120 ML (GASTROGRAFIN) NG ONE (08:00)
--- NOTE | 2021-09-15 08:47 | Consultation-Cardiology ---
HPI-Cardiology Cardiology Consultation: Date of Consultation 09/15/21 Date of Admission Attending Physician Celina Romero MD Admitting Physician No,Local Physician Consulting Physician SNEHAL BROWN Review of Systems-Cardiology All Other Systems Reviewed Negative Unless Noted: Yes (Negative excepted noted.) GZV-Kjjsjk-Spuzun Hx Patient Social History Smoking Status: Former Smoker Have you traveled recently?: Yes Where was recent travel?: TRAVELING FROM [place] Alcohol Use?: Yes (everyday 3 shots) Pt feels they are or have been: No Past Medical History PMH As described under Assessment. Allergies and Home Medications Allergies Coded Allergies: No Known Drug Allergies (Unverified , 09/14/21) Patient Home Medication List Amlodipine Besylate (Amlodipine Besylate) 10 Mg Tablet, 10 MG PO DAILY, (Reported) Entered as Reported by: PHU SUAREZ on 09/14/211044 Last Action: Reviewed Gabapentin (Neurontin) 300 Mg Capsule, 600 MG PO DAILY, (Reported) Entered as Reported by: BHAVANA SPEARS on 09/14/211511 Last Action: Reviewed Omeprazole Magnesium (Prilosec Otc) 20 Mg Tablet.dr, 20 MG PO DAILY, (Reported) Entered as Reported by: BHAVANA SPEARS on 09/14/211511 Last Action: Reviewed Oxycodone HCl (Oxycodone HCl) 5 Mg Tablet, 5 MG PO BID PRN for PAIN-SEVERE (8- 10), (Reported) Entered as Reported by: BHAVANA SPEARS on 09/14/211511 Last Action: Reviewed Vit A/Vit C/Vit E/Zinc/Copper (Eye Multivitamin Tablet) 1 Each Tablet, 1 EACH PO DAILY, (Reported) Entered as Reported by: BHAVANA SPEARS on 09/14/211511 Last Action: Reviewed Discontinued Medications Gabapentin (Gabapentin) 300 Mg/6 Ml Solution, 300 MG PO, (Reported) Discontinued Reason: No Longer Taking Entered as Reported by: PHU SUAREZ on 09/14/211044 Last Action: Discontinued Omeprazole Magnesium (Prilosec) 10 Mg Suspdr.pkt, 10 MG PO, (Reported) Discontinued Reason: Prescription changed Entered as Reported by: PHU SUAREZ on 09/14/211044 Last Action: New Order Oxycodone HCl/Acetaminophen (Oxycodone-Acetaminophen 5-325) 1 Each Tablet, 1 EACH PO Q4H PRN for PAIN-SEVERE, (Reported) Discontinued Reason: No Longer Taking Entered as Reported by: PHU SUAREZ on 09/14/21 1045 Last Action: Discontinued Physical Exam-Cardiology Physical Exam Vital Signs/I&O 09/19/21 09/19/21 09/19/21 09/19/21 00:00 01:00 04:00 07:00 Temp 36.5 36.5 Pulse 68 67 68 77 Resp 18 20 B/P (MAP) 151/70 (97) 158/69 (98) Pulse Ox 94 95 O2 Delivery Room Air Room Air 09/19/21 08:38 Temp 35.9 Pulse 66 Resp 18 B/P (MAP) 173/84 (113) Pulse Ox 93 O2 Delivery Room Air 09/19/21 00:00 Intake Total 1050 ml Balance 1050 ml Capillary Refill : Less Than 3 Seconds Rectal: deferred Lymphatic: no adenopathy (cervical, axilla, groin) Data Review Labs Microbiology 09/18/21 C. difficile GDH Antigen & Toxins - Final, Complete 09/15/21 MRSA Screen - Final, Complete MRSA not isolated 09/14/21 Urine Culture - Final, Complete Citrobacter koseri Citrobacter koseri#2 Radiology NAME: EMMETT WEI [facility] REC#: [id number] PT STATUS: REG ER : 1940 PHYSICIAN: LINDSEY LINDSAY MD ADMIT DATE: 09/14/21/ER FS Signed Date of Exam:09/14/21 CHEST 1 VIEW AP/PA ONLY INDICATION: Check NG tube placement EXAMINATION: Chest 09/14/2021 FINDINGS: There is a feeding tube with the tip likely at the junction of the esophagus and stomach. Continued advancement is advised. Heart is unremarkable. Pulmonary vasculature normal. There is bibasal atelectasis. No effusions. No pneumothorax. IMPRESSION: 1. Bibasilar atelectasis with otherwise no acute cardiopulmonary process. 2. Feeding tube tip appears to lie at the GE junction. Dictated by: Dictated on workstation # [id number] Dict: 09/14/21 1231 Trans: 09/14/21 1325 [facility] [id number] Interpreted by: NORMA ALANIS MD Electronically signed by: NORMA ALANIS MD 09/14/21 3165 A/P-Cardiology Assessment/Admission Diagnosis SBO - management per surgical services SNEHAL HAWK Sep 15, 2021 08:47
--- NOTE | 2021-09-15 09:13 | Progress Note - Surgery ---
KRYSTIN SZYMANSKI MED STUDENT 09/15/21 0913: Subjective Date Seen by a Provider: Sep 15, 2021 Time Seen by a Provider: 06:30 Subjective/Events-last exam Patient is seen bedside. Pain in abdomen is about the same as yesterday, but is also having back pain which makes it very uncomfortable to lay down. He has not been having n/v overnight. He has not passed gas or had bowel movement. He has no changes in his urinary habits Review of Systems General: No Chills, No Night Sweats HEENT: No Visual Changes, No Sinus Congestion Pulmonary: No Cough, No Pleuritic Chest Pain Cardiovascular: No: Chest Pain, Palpitations Gastrointestinal: Constipation; No: Nausea, Vomiting Genitourinary: No Dysuria, No Hematuria Musculoskeletal: hand pain Neurological: No: Weakness, Change in speech Focused Exam Lactate Level 09/14/21 09:40: Lactic Acid Level 1.60 Objective Exam Vital Signs Date Time Temp Pulse Resp B/P (MAP) Pulse Ox O2 Delivery O2 Flow Rate FiO2 09/15/21 07:51 36.9 79 20 92 Room Air 09/15/21 07:00 79 09/15/21 03:55 36.8 84 18 158/74 (102) 93 Room Air 09/15/21 01:00 83 09/14/21 23:30 37.0 65 18 186/79 (114) 90 Room Air 09/14/21 20:58 90 09/14/21 20:50 94 Room Air 09/14/21 20:19 37.1 97 20 170/76 (107) 94 Room Air 09/14/21 16:18 36.7 58 20 166/70 (102) 94 Room Air 09/14/21 13:52 36.5 59 22 192/87 (122) 91 Room Air 09/14/21 13:45 Room Air 09/14/21 12:29 36.0 90 18 166/87 95 Room Air 09/14/21 09:30 36.3 99 18 175/84 (114) 94 Room Air I & O 09/15/21 07:00 Intake Total 2010 ml Output Total 800 ml Balance 1210 ml Capillary Refill : Less Than 3 Seconds General Appearance: WD/WN, Mild Distress HEENT: Pharynx Normal, Moist Mucous Membranes Neck: Normal Inspection, Supple Respiratory: Lungs Clear, Normal Breath Sounds, No Accessory Muscle Use, No Respiratory Distress Cardiovascular: Regular Rate, Rhythm, No Murmur Peripheral Pulses: 2+ Radial Pulses (R), 2+ Radial Pulses (L) Gastrointestinal: non tender, soft, no organomegaly, other (abdomen is mildly distended, tympanic, ttp in LUQ and some fulness, no rebound or guarding, nonperitoneal) Extremity: Normal Capillary Refill, Normal Range of Motion Neurologic/Psychiatric: Alert, Oriented x3 Skin: Normal Color, Warm/Dry Results Lab Laboratory Tests 09/14/21 09:40: White Blood Count 11.1H, Red Blood Count 4.90, Hemoglobin 15.3, Hematocrit 45, Mean Corpuscular Volume 92, Mean Corpuscular Hemoglobin 31, Mean Corpuscular Hemoglobin Concent 34, Red Cell Distribution Width 14.5, Platelet Count 217, M radhika Platelet Volume 9.5, Immature Granulocyte % (Auto) 0, Neutrophils (%) (Auto) 61, Lymphocytes (%) (Auto) 34, Monocytes (%) (Auto) 4, Eosinophils (%) (Auto) 0, Basophils (%) (Auto) 0, Neutrophils # (Auto) 6.8, Lymphocytes # (Auto) 3.8, Monocytes # (Auto) 0.5, Eosinophils # (Auto) 0.0, Basophils # (Auto) 0.0, Immature Granulocyte # (Auto) 0.0, Prothrombin Time 12.5, INR Comment 0.9, Activated Partial Thromboplast Time 30, Sodium Level 140, Potassium Level 4.0, Chloride Level 102, Carbon Dioxide Level 25, Anion Gap 13, Blood Urea Nitrogen 14, Creatinine 0.71, Estimat Glomerular Filtration Rate 106, BUN/Creatinine Ratio 20, Glucose Level 152H, Lactic Acid Level 1.60, Calcium Level 9.9, Corrected Calcium , Total Bilirubin 1.0, Aspartate Amino Transf (AST/SGOT) 19, Alanine Aminotransferase (ALT/SGPT) 19, Alkaline Phosphatase 62, Troponin I < 0.30, Total Protein 6.7, Albumin 4.6H, Lipase 19, Serum Alcohol < 10 09/14/21 10:04: Urine Color YELLOW, Urine Clarity CLOUDY, Urine pH 5.5, Urine Specific [place] >=1.030, Urine Protein 1+H, Urine Glucose (UA) NEGATIVE, Urine Ketones 2+H, Urine Nitrite POSITIVEH, Urine Bilirubin NEGATIVE, Urine Urobilinogen 0.2, Urine Leukocyte Esterase TRACEH, Urine RBC (Auto) NEGATIVE, Urine RBC NONE, Urine WBC 50-100H, Urine Squamous Epithelial Cells RARE, Urine Crystals NONE, Urine Bacteria LARGEH, Urine Casts NONE, Urine Mucus LARGEH, Urine Culture Indicated YES 09/15/21 05:20: White Blood Count 14.7H, Red Blood Count 4.73, Hemoglobin 14.7, Hematocrit 44, Mean Corpuscular Volume 93, Mean Corpuscular Hemoglobin 31, Mean Corpuscular Hemoglobin Concent 33, Red Cell Distribution Width 14.5, Platelet Count 201, Mean Platelet Volume 9.7, Immature Granulocyte % (Auto) 1, Neutrophils (%) (Auto) 65, Lymphocytes (%) (Auto) 27, Monocytes (%) (Auto) 7, Eosinophils (%) (Auto) 0, Basophils (%) (Auto) 0, Neutrophils # (Auto) 9.6H, Lymphocytes # (Auto) 3.9, Monocytes # (Auto) 1.1H, Eosinophils # (Auto) 0.0, Basophils # (Auto) 0.0, Immature Granulocyte # (Auto) 0.1, Sodium Level 141, Potassium Level 3.9, Chloride Level 107, Carbon Dioxide Level 21, Anion Gap 13, Blood Urea Nitrogen 13, Creatinine 0.71, Estimat Glomerular Filtration Rate 106, BUN/Creatinine Ratio 18, Glucose Level 156H, Calcium Level 8.5, Neutrophils % ( Manual) 66, Lymphocytes % (Manual) 27, Monocytes % (Manual) 7 Assessment/Plan Assessment/Plan Assessment/Plan SBO lower abdominal pain nausea and vomiting paroxysmal afib UTI HTN athirits GERD peripheral neuropathy Everyday alcohol use NPO, IVF @130ml/hr, pain control, anti-emetic, no anticoagulation at this time, NG tube to liws waitng on sbft Reviewed CT and obstruction is substantial, patient is current stable, nonperitoneal, will start with conservative management low threshold for surgical intervention. PARTH FINK DO 09/15/21 1150: Subjective Subjective/Events-last exam Patient still not feeling well. Abdominal pain moderate and same as yesterday. Ng tube in place, he placed it further in himself. Small bowel follow through this morning. No flatus or bowel function. Denies fever sweats chills shortness of breath or chest pain. Objective Exam General Appearance: WD/WN, Mild Distress HEENT: PERRL/EOMI Neck: Normal Inspection Respiratory: Chest Non Tender, No Accessory Muscle Use, No Respiratory Distress Cardiovascular: Regular Rate, Rhythm, No JVD Gastrointestinal: tenderness, other (abdomen is mildly distended, tympanic, ttp around umbilicus no rebound or guarding, nonperitoneal) Extremity: Normal Capillary Refill, Normal Range of Motion Neurologic/Psychiatric: Alert, Oriented x3 Skin: Normal Color, Warm/Dry Lymphatic: No Adenopathy Assessment/Plan Assessment/Plan Assessment/Plan SBO lower abdominal pain nausea and vomiting paroxysmal afib UTI HTN athirits GERD peripheral neuropathy Everyday alcohol use Patient with small bowel obstruction, started having nausea and emesis during small bowel follow through. Feel this is not going to get better without surgical intervention. He was discussed risks and benefits of exploratory laparotomy all other indicated procedures. He understands and wishes to proceed. To OR. Supervisory-Addendum Brief Verification & Attestation Participated in pt care: history, MDM, physical Personally performed: exam, history, MDM, supervision of care Care discussed with: Medical Student Procedures: n/a Results interpretation: Verified all documentation Verification and Attestation of Medical Student E/M Service A medical student performed and documented this service in my presence. I reviewed and verified all information documented by the medical student and made modifications to such information, when appropriate. I personally performed the physical exam and medical decision making. Parth Fink, Sep 15, 2021,11:48 KRYSTIN SZYMANSKI MED STUDENT Sep 15, 2021 09:13 PARTH FINK DO Sep 15, 2021 11:50
[2021-09-15] MEDS: METOCLOPRAMIDE INJ 10 MG/2 ML (REGLAN) IV PRN (10:25)
--- NOTE | 2021-09-15 11:19 | History & Physical-Hospitalist ---
History of Present Illness HPI/Chief Complaint She is an 80-year-old male with past medical history of hypertension who presented to the ER due to abdominal pain. He is traveling across the country and is originally from [place] but over the last 2 days developed abdominal pain with nausea and vomiting. He reports no bowel movements or flatus in that timeframe either. Originally he reported he had no previous abdominal surgical history though now states he had a surgery in the [employer] many years ago but he is unsure what it is. That his symptoms were due to food poisoning from a restaurant that he ate at but everyone else was healthy and his symptoms persisted prompting him to seek evaluation in the emergency room. CT of his abdomen was done and revealed a small bowel obstruction with transition point in the left upper quadrant. Also they noted that the cecum did not have normal attachment in the right lower quadrant and was positioned in the right upper quadrant. This morning when I saw him he had just returned from his small bowel follow-through and was complaining of significant bloating and discomfort from that. Source: patient Date Seen 09/15/21 Time Seen by a Provider: 11:15 Attending Physician Isabel Romero MD PCP No,Local Physician Referring Physician Date of Admission Sep 14, 2021 at 13:43 Home Medications & Allergies Home Medications Reviewed patient Home Medication Reconciliation performed by pharmacy medication reconciliations firestopper technician and/or nursing. Patients Allergies have been reviewed. Allergies Allergies Coded Allergies No Known Drug Allergies (Qgoqtamlqi29/4/21) Past Mxglcdc-Nuqgek-Ofrbyd Hx Patient Social History Tobacco Use?: No Smoking Status: Former Smoker Use of E-Cig and/or Vaping dev: No Substance use?: No Alcohol Use?: Yes (everyday 3 shots) Alcohol type: Beer, Hard Liquor Alcohol Frequency: Daily Pt feels they are or have been: No Immunizations Up To Date First/Initial COVID19 Vaccinat: NOV 2020 Second COVID19 Vaccination Luis: DEC 2020 Current Status Advance Directives: No Communicates: Verbally Primary Language: Beninese Preferred Spoken Language: Beninese Is interpretation needed?: No Sensory deficits: Vision impairment Implanted or Applied Medical D: Orthopedic hardware Past Medical History Surgeries: Orthopedic (hip and lumbar spine) Hypertension Neuropathy Gastroesophageal Reflux Arthritis Family Medical History No Pertinent Family Hx, CAD Over 55 Years Old (brother) Review of Systems Constitutional: No chills, No fever EENTM: no symptoms reported Respiratory: no symptoms reported Cardiovascular: No chest pain, No palpitations Gastrointestinal: see HPI, abdominal pain, constipation, nausea, vomiting Genitourinary: no symptoms reported Musculoskeletal: no symptoms reported Skin: no symptoms reported Psychiatric/Neurological: No Symptoms Reported Physical Exam Physical Exam Vital Signs Vital Signs - First Documented 09/14/21 09:30 Temp 36.3 Pulse 99 Resp 18 B/P (MAP) 175/84 (114) Pulse Ox 94 O2 Delivery Room Air Capillary Refill : Less Than 3 Seconds Height, Weight, BMI Height: '" Weight: lbs. oz. kg; 33.05 BMI Method: General Appearance: No Apparent Distress Results Results/Procedures Labs Laboratory Tests 09/14/21 09:40 09/15/21 05:20 Patient resulted labs reviewed. Imaging: Reviewed Imaging Report [facility] [place] [place] NAME: EMMETT WEI [facility] REC#: [id number] PT STATUS: REG ER : 1940 PHYSICIAN: LINDSEY LINDSAY MD ADMIT DATE: 09/14/21/ER FS Signed Date of Exam:09/14/21 CT ABDOMEN/PELVIS W CT ABDOMEN/PELVIS W TECHNIQUE: Multiple contiguous axial images were obtained through the abdomen and pelvis after administration of intravenous contrast. All CT scans use one or more of the following dose optimizing techniques: automated exposure control, MA and/or KvP adjustment based on patient size and exam type or iterative reconstruction. INDICATION: Nausea vomiting COMPARISON: None available. FINDINGS: Lower chest: Trace right pleural effusion with minimal right basilar subsegmental atelectasis. Peritoneum: Small volume of free fluid is present with the abdomen, predominantly under the right hemidiaphragm. No free intraperitoneal air. Liver and biliary system: The liver is normal. The gallbladder is normal. No biliary duct dilation. Spleen and Pancreas: Spleen is normal. The pancreas enhances normally without mass lesion or peripancreatic inflammatory changes. Adrenals: Normal. tract: The kidneys enhance normally without suspicious mass or obstruction. Urinary bladder is distended without wall thickening. Prostate is borderline enlarged. GI tract: Moderate sized hiatal hernia. Small bowel loops are fluid-filled and dilated measuring up to 3.5 cm. There is likely a transition point in the left upper quadrant Colon is decompressed. The appendix is not visualized. Vasculature and Lymph nodes: Normal caliber aorta. No abdominal or pelvic lymphadenopathy. Musculoskeletal: No concerning osseous lesion. IMPRESSION: 1. Small bowel obstruction with transition point in the left upper quadrant. The distal small bowel loops are decompressed. Of note, the cecum does not have its normal attachment in the right lower quadrant and is positioned in the right upper quadrant. 2. No perforation or abscess. Dictated by: Dictated on workstation # [id number] Dict: 09/14/21 1049 Trans: 09/14/21 1202 [facility] [id number] Interpreted by: JOSH SHAVER MD Electronically signed by: JOSH SHAVER MD 09/14/21 1202 Assessment/Plan Admission Diagnosis SBO Admission Status: Inpatient Order (span 2 midnights) Reason for Inpatient Admission: see below Assessment and Plan SBO NGT in place persistent distention and pain SBFT pending High likelihood of needing surgery, gen surg consulted, appreciate recs Continue pain regimen UTI Continue Rocephin await cultures not sepsis HTN BP relatively well controlled for in hospital parameters Cardiology consulted, appreciate recs Elevated blood sugar Denies history of DMI Trend DVT ppx: SCDs only for possible surgery Diagnosis/Problems Diagnosis/Problems (1) Small bowel obstruction Status: Acute (2) Atrial fibrillation Status: Acute Qualifiers: Atrial fibrillation type: paroxysmal Qualified Codes: I48.0 - Paroxysmal atrial fibrillation (3) Essential (primary) hypertension Status: Chronic (4) Hyperglycemia Status: Acute (5) Acute cystitis without hematuria Status: Acute ISABEL ROMERO MD Sep 15, 2021 11:19
--- NOTE | 2021-09-15 11:24 | Consultation-Cardiology ---
HPI-Cardiology Cardiology Consultation: Date of Consultation 09/15/21 Time Seen by a Provider: 10:30 Date of Admission 09-14-21 Attending Physician Celina Romero MD Admitting Physician No,Local Physician Consulting Physician Rodolfo Francis MD HPI: Chief Complaint: Abd pain Arrhythmia Mr. Rick is an 80 yr old male admitted to [facility] from the ED with c/o abdominal pain. He reports he and his are traveling through the area from [place]. He reports sudden onset of abdominal pain. He denies any c/o CP, SOB, palpitations, syncope, near syncope. He reports chronic RLE swelling following a knee replacement 10 yrs ago. He denies any h/o cardiac issues or arrhythmia. He states he continues to have abdominal pain, but it has improved. He reports he is a daily drinker of whiskey, but would not elaborate on amount. Review of Systems-Cardiology Review of Systems Constitutional: No chills, No fever, No lightheadedness Eyes: No vision change Ears/Nose/Throat: No epistaxis, No recent hearing loss Respiratory: As described under HPI Cardiovascular: As described under HPI Gastrointestinal: As described under HPI Genitourinary: No hematuria Musculoskeletal: back pain (chronic) Skin: No rash on exposed areas, No ulcerations on exposed areas Psychiatric/Neurological: No anxiety, No depression, No seizure, No focal weakness, No syncope Hematologic: No bleeding abnormalities All Other Systems Reviewed Negative Unless Noted: Yes (Negative excepted noted.) FPY-Foacez-Wrtekk Hx Patient Social History Smoking Status: Former Smoker Have you traveled recently?: Yes Where was recent travel?: TRAVELING FROM [place] Alcohol Use?: Yes (everyday 3 shots) Pt feels they are or have been: No Past Medical History PMH As described under Assessment. Family Medical History Family Medical History: He reports a brother with heart problems, but is unsure of the details. Allergies and Home Medications Allergies Coded Allergies: No Known Drug Allergies (Unverified , 09/14/21) Patient Home Medication List Amlodipine Besylate (Amlodipine Besylate) 10 Mg Tablet, 10 MG PO DAILY, (Reported) Entered as Reported by: PHU SUAREZ on 09/14/21 1045 Last Action: Reviewed Gabapentin (Neurontin) 300 Mg Capsule, 600 MG PO DAILY, (Reported) Entered as Reported by: BHAVANA SPEARS on 11/4/21 1512 Last Action: Reviewed Omeprazole Magnesium (Prilosec Otc) 20 Mg Tablet.dr, 20 MG PO DAILY, (Reported) Entered as Reported by: BHAVANA SPEARS on 09/14/211511 Last Action: Reviewed Oxycodone HCl (Oxycodone HCl) 5 Mg Tablet, 5 MG PO BID PRN for PAIN-SEVERE (8- 10), (Reported) Entered as Reported by: BHAVANA SPEARS on 09/14/211511 Last Action: Reviewed Vit A/Vit C/Vit E/Zinc/Copper (Eye Multivitamin Tablet) 1 Each Tablet, 1 EACH PO DAILY, (Reported) Entered as Reported by: BHAVANA SPEARS on 09/14/211511 Last Action: Reviewed Discontinued Medications Gabapentin (Gabapentin) 300 Mg/6 Ml Solution, 300 MG PO, (Reported) Discontinued Reason: No Longer Taking Entered as Reported by: PHU SUAREZ on 09/14/211044 Last Action: Discontinued Omeprazole Magnesium (Prilosec) 10 Mg Suspdr.pkt, 10 MG PO, (Reported) Discontinued Reason: Prescription changed Entered as Reported by: PHU SUAREZ on 09/14/211044 Last Action: New Order Oxycodone HCl/Acetaminophen (Oxycodone-Acetaminophen 5-325) 1 Each Tablet, 1 EACH PO Q4H PRN for PAIN-SEVERE, (Reported) Discontinued Reason: No Longer Taking Entered as Reported by: PHU SUAREZ on 09/14/211044 Last Action: Discontinued Physical Exam-Cardiology Physical Exam Vital Signs/I&O 09/19/21 09/19/21 09/19/21 09/19/21 00:00 01:00 04:00 07:00 Temp 36.5 36.5 Pulse 68 67 68 77 Resp 18 20 B/P (MAP) 151/70 (97) 158/69 (98) Pulse Ox 94 95 O2 Delivery Room Air Room Air 09/19/21 08:38 Temp 35.9 Pulse 66 Resp 18 B/P (MAP) 173/84 (113) Pulse Ox 93 O2 Delivery Room Air 09/19/21 00:00 Intake Total 1050 ml Balance 1050 ml Capillary Refill : Less Than 3 Seconds Constitutional: AAO x 3, well-developed, well-nourished HEENT: PERRL, hearing is well preserved, oral hygience is good Neck: No carotid bruit; carotid pulses are 2 + bilaterally Respiratory: No accessory muscle use, No respiratory distress; chest expansion is symmetric, chest is bilaterally symmetric, lungs clear to auscultation Cardiovascular: irregularly irregular; No JVD; S1 and S2 Gastrointestinal: tender, round Rectal: deferred Extremities: other (RLE swelling mild to mod) Neurologic/Psychiatric: grossly intact (moves all extremities) Skin: No rash on exposed areas, No ulcerations on exposed areas Data Review Labs Microbiology 09/18/21 C. difficile GDH Antigen & Toxins - Final, Complete 09/15/21 MRSA Screen - Final, Complete MRSA not isolated 09/14/21 Urine Culture - Final, Complete Citrobacter koseri Citrobacter koseri#2 Radiology NAME: EMMETT RICK [facility] REC#: [id number] PT STATUS: REG ER : 1940 PHYSICIAN: LINDSEY LINDSAY MD ADMIT DATE: 09/14/21/ER FS Signed Date of Exam:09/14/21 CHEST 1 VIEW AP/PA ONLY INDICATION: Check NG tube placement EXAMINATION: Chest 09/14/2021 FINDINGS: There is a feeding tube with the tip likely at the junction of the esophagus and stomach. Continued advancement is advised. Heart is unremarkable. Pulmonary vasculature normal. There is bibasal atelectasis. No effusions. No pneumothorax. IMPRESSION: 1. Bibasilar atelectasis with otherwise no acute cardiopulmonary process. 2. Feeding tube tip appears to lie at the GE junction. 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 - start BB - start anticoagulation - give Lovenox for now until able to take oral medications (if ok with surgical services) HTN - uncontrolled Chronic back pain Multiple surgeries - bilat knee replacements and shoulder surgeries 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 - unable to say when ETOH usage - whiskey - daily H/O TURP x 2 Discussion and Recomendations 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trial fib - start anticoagulation for stroke prophylaxis - start Lovenox d/t NPO status if ok with surgical services - when able to take oral start Eliquis 5mg BID Echocardiogram to eval structure and function BP not well controlled - start IV BB until able to take oral Continue tele Monitor lab closely SBO management per surgical services We would like to thank medical services for this consult Further recs will be based on his hospital course SNEHAL HAWK Sep 15, 2021 11:24
[2021-09-15] MEDS ORDERED: fentaNYL INJ 100 MCG/2 ML AMP ONE (11:57)
[2021-09-15] MEDS ORDERED: LIDOCAINE/EPI 1%-1:100,000 (XYLOCAINE) 20ML ONE (11:58)
[2021-09-15] MEDS ORDERED: meTOprolol 5 MG/5 ML (LOPRESSOR) VIAL IV ONE (12:00)
[2021-09-15] MEDS ORDERED: metroNIDAZOLE 500MG/100ML IVPB 100 ML IV ONE (12:00)
--- NOTE | 2021-09-15 12:06 | Diagnostic Imaging Report ---
INDICATION: Small bowel obstruction. Patient was given 120 mL of gastrografin contrast with 100 mL water through the patient's NG tube and serial radiographs of the abdomen were obtained. Preliminary radiograph does show an NG tube looped upon itself in the upper abdomen. NG tube apex of the loop is at the junction of the 2nd and 3rd portion of the duodenum with the tip directed retrograde in the stomach. Preliminary radiograph also shows some the gaseous distended small bowel loops. Post contrast injection there is contrast filling the stomach with prompt emptying into the proximal small bowel loops. There are numerous dilated small bowel loops throughout the abdomen. The study was performed out to 3 hours. At 3 hours, the colon was still not opacified. No definite normal caliber or transition zone is seen at this time. Patient reportedly is going to go to the OR for exploratory laparotomy. IMPRESSION: Small bowel study was terminated early. There are dilated small bowel loops suggestive of obstruction. The transition point was not identified. The colon was not opacified. Patient reportedly is going to the OR. Dictated by: Dictated on workstation # [id number]
[2021-09-15] MEDS ORDERED: LACTATED RINGERS 1,000 ML IV PRN (12:30)
[2021-09-15] MEDS ORDERED: cefTRIAXone 1,000 MG VIAL ONE (12:34)
[2021-09-15] MEDS: cefTRIAXone 1,000 MG/SWFI 10 ML IV PUSH IV SCH ×2 (12:35)
[2021-09-15] MEDS ORDERED: meTOprolol 5 MG/5 ML (LOPRESSOR) VIAL ONE (12:36)
[2021-09-15] MEDS ORDERED: proPOfol 200 MG/20 ML (DIPRIVAN) VIAL IV ONE (12:37)
[2021-09-15] MEDS ORDERED: LIDOCAINE PF 2% 5 ML (XYLOCAINE) VIAL ONE (12:37)
[2021-09-15] MEDS ORDERED: ROCURONIUM 10 MG/ML 5 ML SYRINGE IV ONE (12:59)
[2021-09-15] MEDS ORDERED: cefTRIAXone 1,000 MG in WATER (STERILE) FOR INJECTION 10 ML IV ONE (13:00)
[2021-09-15] MEDS ORDERED: BUPIVACAINE 0.25% 30 ML (SENSORCAINE) VIAL ONE (13:05)
[2021-09-15] MEDS ORDERED: NEOSTIGMINE 3 MG/3 ML VIAL ONE (13:15)
[2021-09-15] MEDS ORDERED: GLYCOPYRROLATE 0.2 MG/ML (ROBINUL) 2 ML VIAL ONE (13:15)
[2021-09-15] MEDS ORDERED: SEVOFLURANE (ULTANE) 15 ML INHAL SOLN ONE (13:34)
--- NOTE | 2021-09-15 13:35 | Progress Note-Post Operative ---
Post-Operative Progess Note Surgeon (s)/Seismic Engineer (s) Surgeon LIZETTE MEJIA DO Seismic Engineer: Dr. Huff to assist in retraction dissection and closure. Pre-Operative Diagnosis small bowel obstruction Post-Operative Diagnosis ischemic small bowel secondary to omental adhesion Procedure & Operative Findings Date of Procedure 09/15/21 Procedure Performed/Findings exploratory laparotomy with small bowel resection Anesthesia Type general Estimated Blood Loss Estimated blood loss (mL): none Specimens/Packing Specimens Removed small bowel LIZETTE MEJIA DO Sep 15, 2021 13:35
[2021-09-15] MEDS ORDERED: PROMETHAZINE INJ 25 MG/ML (PHENERGAN) AMP IVP ONE (14:00)
[2021-09-15] MEDS ORDERED: morphine INJ 10 MG/ML 1ML (SYR OR VIAL) ONE (14:00)
[2021-09-15] MEDS ORDERED: MEPERIDINE (DEMEROL) INJ 50 MG/ML IVP ONE (14:00)
[2021-09-15] MEDS ORDERED: morphine INJ 10 MG/ML 1ML (SYR OR VIAL) IVP ONE (14:00)
[2021-09-15] MEDS ORDERED: ONDANSETRON 4 MG/2 ML (SDV) Z0FRAN IVP PRN (14:00)
--- NOTE | 2021-09-15 15:31 | Consultation-Cardiology ---
HPI-Cardiology Cardiology Consultation: Date of Consultation 09/15/21 Time Seen by a Provider: 14:45 Date of Admission Attending Physician Celina Romero MD Admitting Physician No,Local Physician Consulting Physician ANIBAL LEVINE MD, MA, FACP, FACC, [facility], CCDS HPI: Chief Complaint: Reason for Card consult: Arrhythmia HPI Mr. Rick is an 80 yr old male admitted to [facility] from the ED with c/o abdominal pain. He reports he and his are traveling through the area from [place]. He reports sudden onset of abdominal pain. He denies any c/o CP, SOB, palpitations, syncope, near syncope. He reports chronic RLE swelling following a knee replacement 10 yrs ago. He denies any h/o cardiac issues or arrhythmia. He states he continues to have abdominal pain, but it has improved. He reports he is a daily drinker of whiskey, but would not elaborate on amount. Review of Systems-Cardiology Review of Systems Constitutional: No chills, No fever, No lightheadedness Eyes: No vision change Ears/Nose/Throat: No epistaxis, No recent hearing loss Respiratory: As described under HPI Cardiovascular: As described under HPI Gastrointestinal: As described under HPI Genitourinary: No hematuria Musculoskeletal: back pain (chronic) Skin: No rash on exposed areas, No ulcerations on exposed areas Psychiatric/Neurological: No anxiety, No depression, No seizure, No focal weakness, No syncope Hematologic: No bleeding abnormalities All Other Systems Reviewed Negative Unless Noted: Yes (Negative excepted noted.) RCD-Vbwlxo-Keihqd Hx Patient Social History Smoking Status: Former Smoker Have you traveled recently?: Yes Where was recent travel?: TRAVELING FROM [place] Alcohol Use?: Yes (everyday 3 shots) Pt feels they are or have been: No Past Medical History PMH As described under Assessment. Family Medical History Family Medical History: He reports a brother with heart problems, but is unsure of the details. Allergies and Home Medications Allergies Coded Allergies: No Known Drug Allergies (Unverified , 09/14/21) Patient Home Medication List Home Medication List Reviewed: Yes Amlodipine Besylate (Amlodipine Besylate) 10 Mg Tablet, 10 MG PO DAILY, (Reported) Entered as Reported by: PHU SUAREZ on 09/14/21 1045 Last Action: Reviewed Gabapentin (Neurontin) 300 Mg Capsule, 600 MG PO DAILY, (Reported) Entered as Reported by: BHAVANA SPEARS on 09/14/211511 Last Action: Reviewed Omeprazole Magnesium (Prilosec Otc) 20 Mg Tablet.dr, 20 MG PO DAILY, (Reported) Entered as Reported by: BHAVANA SPEARS on 09/14/211511 Last Action: Reviewed Oxycodone HCl (Oxycodone HCl) 5 Mg Tablet, 5 MG PO BID PRN for PAIN-SEVERE (8- 10), (Reported) Entered as Reported by: BHAVANA SPEARS on 09/14/211511 Last Action: Reviewed Vit A/Vit C/Vit E/Zinc/Copper (Eye Multivitamin Tablet) 1 Each Tablet, 1 EACH PO DAILY, (Reported) Entered as Reported by: BHAVANA SPEARS on 09/14/211511 Last Action: Reviewed Discontinued Medications Gabapentin (Gabapentin) 300 Mg/6 Ml Solution, 300 MG PO, (Reported) Discontinued Reason: No Longer Taking Entered as Reported by: PHU SUAREZ on 09/14/211044 Last Action: Discontinued Omeprazole Magnesium (Prilosec) 10 Mg Suspdr.pkt, 10 MG PO, (Reported) Discontinued Reason: Prescription changed Entered as Reported by: PHU SUAREZ on 09/14/211044 Last Action: New Order Oxycodone HCl/Acetaminophen (Oxycodone-Acetaminophen 5-325) 1 Each Tablet, 1 EACH PO Q4H PRN for PAIN-SEVERE, (Reported) Discontinued Reason: No Longer Taking Entered as Reported by: PHU SUAREZ on 09/14/211044 Last Action: Discontinued Physical Exam-Cardiology Physical Exam Vital Signs/I&O 09/15/21 09/15/21 09/15/21 09/15/21 03:55 07:00 07:51 08:00 Temp 36.8 36.9 Pulse 84 79 79 Resp 18 20 B/P (MAP) 158/74 (102) Pulse Ox 93 92 94 O2 Delivery Room Air Room Air Room Air 09/15/21 09/15/21 09/15/21 09/15/21 11:45 12:27 13:42 13:42 Temp 37.3 36.3 Pulse 98 108 Resp 20 16 B/P (MAP) 132/90 (104) 131/94 (106) Pulse Ox 91 94 O2 Delivery Room Air OxyMask OxyMask O2 Flow Rate 6 6 09/15/21 09/15/21 09/15/21 09/15/21 13:50 13:55 14:00 14:10 Resp 18 18 18 B/P (MAP) 130/80 (97) 135/64 (87) 121/73 (89) Pulse Ox 94 97 95 O2 Delivery OxyMask OxyMask OxyMask OxyMask O2 Flow Rate 6 6 6 6 09/15/21 09/15/21 09/15/21 09/15/21 14:10 14:18 14:20 14:25 Resp 18 B/P (MAP) 151/72 (98) Pulse Ox 93 O2 Delivery OxyMask OxyMask OxyMask OxyMask O2 Flow Rate 6 3 3 3 09/15/21 09/15/21 09/15/21 09/15/21 14:30 14:32 14:40 14:46 Temp 36.5 36.5 Pulse 62 Resp 18 18 20 B/P (MAP) 145/72 (96) 145/70 (95) 149/78 (101) Pulse Ox 93 93 93 O2 Delivery Nasal Cannula Nasal Cannula Nasal Cannula Room Air O2 Flow Rate 3 3 3 09/15/21 15:06 O2 Delivery Nasal Cannula O2 Flow Rate 3.00 09/15/21 00:00 Intake Total 1010 ml Output Total 300 ml Balance 710 ml Capillary Refill : Less Than 3 Seconds Constitutional: AAO x 3, well-developed, well-nourished HEENT: PERRL, hearing is well preserved, oral hygience is good Neck: No carotid bruit; carotid pulses are 2 + bilaterally Respiratory: No accessory muscle use, No respiratory distress; chest expansion is symmetric, chest is bilaterally symmetric, lungs clear to auscultation Cardiovascular: irregularly irregular; No JVD; S1 and S2 Gastrointestinal: tender, round Rectal: deferred Extremities: other (RLE swelling mild to mod) Neurologic/Psychiatric: grossly intact (moves all extremities) Skin: No rash on exposed areas, No ulcerations on exposed areas Data Review Labs Laboratory Tests 09/15/21 05:20: White Blood Count 14.7H, Red Blood Count 4.73, Hemoglobin 14.7, Hematocrit 44, Mean Corpuscular Volume 93, Mean Corpuscular Hemoglobin 31, Mean Corpuscular Hemoglobin Concent 33, Red Cell Distribution Width 14.5, Platelet Count 201, Mean Platelet Volume 9.7, Immature Granulocyte % (Auto) 1, Neutrophils (%) (Au to) 65, Lymphocytes (%) (Auto) 27, Monocytes (%) (Auto) 7, Eosinophils (%) (Auto) 0, Basophils (%) (Auto) 0, Neutrophils # (Auto) 9.6H, Lymphocytes # (Auto) 3.9, Monocytes # (Auto) 1.1H, Eosinophils # (Auto) 0.0, Basophils # (Auto) 0.0, Immature Granulocyte # (Auto) 0.1, Neutrophils % (Manual) 66, Lymphocytes % (Manual) 27, Monocytes % (Manual) 7, Sodium Level 141, Potassium Level 3.9, Chloride Level 107, Carbon Dioxide Level 21, Anion Gap 13, Blood Urea Nitrogen 13, Creatinine 0.71, Estimat Glomerular Filtration Rate 106, BUN/Creatinine Ratio 18, Glucose Level 156H, Calcium Level 8.5 Microbiology 09/14/21 Urine Culture - Preliminary, Resulted Citrobacter koseri A/P-Cardiology Assessment/Admission Diagnosis SBO - management per surgical services 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-fib - start BB - start anticoagulation - give Lovenox for now until able to take oral medications (if ok with surgical services) HTN - uncontrolled Chronic back pain Multiple surgeries - bilat knee replacements and shoulder surgeries 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 - unable to say when ETOH usage - whiskey - daily H/O TURP x 2 Discussion and Recomendations 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trial fib - start anticoagulation for stroke prophylaxis - start Lovenox d/t NPO status if ok with Surgical services - when able to take oral and when ok with the Surgical services, start Eliquis 5 mg BID Echocardiogram to eval structure and function BP not well controlled - start IV BB until able to take oral Continue tele Monitor lab closely SBO management per surgical services We would like to thank Medical services for this consult Further recs will be based on his hospital course ANIBAL LEVINE MD FACP [facility] CCDS Sep 15, 2021 15:31
[2021-09-15] MEDS: meTOprolol 5 MG/5 ML (LOPRESSOR) VIAL IV SCH (18:29)
[2021-09-15] MEDS: metroNIDAZOLE 500MG/100ML IVPB 100 ML IV SCH (19:45)
--- NOTE | 2021-09-15 21:48 | OPERATIVE REPORT ---
DATE OF SERVICE: 09/15/2021 PREOPERATIVE DIAGNOSIS: Small-bowel obstruction. 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 PROCEDURE: Exploratory laparotomy with small bowel resection. SURGEON: Lizette Fink DO TREND INVESTIGATOR: Dr. Huff, assisted in retraction, dissection and closure. ANESTHESIA: General. ESTIMATED BLOOD LOSS: Minimal. COMPLICATIONS: None. INDICATIONS: The patient is an 80-year-old male who presented with abdominal pain and nausea, vomiting with small bowel obstruction. CT scan was suggestive of bowel obstruction and was having small bowel follow through. The patient is having worsening nausea and vomiting as well, so decided to stop small bowel follow through and proceed with exploratory laparotomy. The patient understands risks and benefits and wished to proceed. Consent was signed in the chart. DESCRIPTION OF PROCEDURE: The patient was taken to the operating suite, was prepped and draped in sterile fashion. Timeout was performed. Midline incision was made. Cautery was used to dissect down to the fascia and then opened the fascia. Significant amount of fluid throughout the abdomen, which was then suctioned. The small bowel was then brought out. There is ischemic bowel visualized. This was then stuck down to the root of the mesentery where an omental band was present, which had caused the small bowel to rotate significant portion of bowel and caused to become ischemic. Proximal and distal to the ischemic areas of the bowel was dissected around and Endo-BENEDICT staple was fired across and then a LigaSure was used to remove the ischemic bowel. A [id number] anastomosis was created using an Endo-BENEDICT linear stapler. A crotch stitch was placed. The mesenteric defect was then closed using 3-0 Vicryl pop-off. The abdomen was then irrigated with copious amounts of irrigation. No other pathology noted. The small bowel was then ran again from the cecum all the way to the ligament of Treitz without any other pathology noted. The peritoneum was then closed with 3-0 Vicryl. The fascia was then closed with 1-0 looped PDS. The wound was then irrigated, and the skin was then closed with aleks. The area was then washed and dried and sterile bandage was applied. The patient tolerated procedure well without any complications, taken to recovery room in stable condition. Job ID: [id number] DocumentID: [id number] Dictated Date: 09/15/2021 13:59:26 Cake Knocker Date: 09/15/2021 21:47:12 Dictated By: LIZETTE FINK DO
[2021-09-16] VITALS (7 sets, daily range): BP systolic 145–171; BP diastolic 77–98
[2021-09-16] MEDS: meTOprolol 5 MG/5 ML (LOPRESSOR) VIAL IV SCH ×6 (00:04→23:37)
[2021-09-16] MEDS: metroNIDAZOLE 500MG/100ML IVPB 100 ML IV SCH ×4 (04:00→20:22)
[2021-09-16 06:36] LABS: HEMATOCRIT 39 % (40-54); HEMOGLOBIN 12.8 g/dL (13.3-17.7); MEAN CORPUSCULAR HEMOGLOBIN 31 pg (25-34); MEAN CORPUSCULAR HGB CONC 33 g/dL (32-36); MEAN CORPUSCULAR VOLUME 95 fL (80-99); MEAN PLATELET VOLUME 9.5 fL (9.0-12.2); PLATELET COUNT 167 10^3/uL (130-400)
[2021-09-16 06:52] LABS: CALCIUM 7.8 MG/DL (8.5-10.1); CREATININE SERUM 0.7 MG/DL (0.60-1.30); MAGNESIUM 1.8 MG/DL (1.6-2.4)
[2021-09-16] MEDS: NS IV 1000 ML 1,000 ML IV SCH ×2 (08:45→20:23)
--- NOTE | 2021-09-16 10:52 | Progress Note ---
Subjective Date Seen by a Provider: Sep 16, 2021 Time Seen by a Provider: 09:45 Subjective/Events-last exam Patient seen with Dr. Ballard. Patient reports doing ok. Denies any flatus or BMs, N/V, Fever/chills. Does report some abdominal discomfort, but not bad. Focused Exam Lactate Level 09/14/21 09:40: Lactic Acid Level 1.60 Objective Exam Vital Signs Date Time Temp Pulse Resp B/P (MAP) Pulse Ox O2 Delivery O2 Flow Rate FiO2 09/16/21 09:31 Nasal Cannula 3.00 09/16/21 08:00 Nasal Cannula 3.00 09/16/21 08:00 37.1 75 15 168/77 (107) 92 Nasal Cannula 3.00 09/16/21 07:00 80 09/16/21 04:21 37.1 75 15 145/98 (114) 92 Nasal Cannula 09/16/21 01:00 70 09/16/21 00:22 36.7 81 14 156/85 (108) 88 09/15/21 21:05 91 Nasal Cannula 2.00 09/15/21 20:43 91 Nasal Cannula 2.00 09/15/21 19:11 36.6 70 20 171/85 (113) 91 Nasal Cannula 3.00 09/15/21 19:00 72 09/15/21 15:54 36.4 70 20 150/75 (100) 94 Room Air 09/15/21 15:06 Nasal Cannula 3.00 09/15/21 14:46 36.5 62 20 149/78 (101) 93 Room Air 09/15/21 14:40 Nasal Cannula 3 09/15/21 14:40 36.5 18 145/70 (95) 93 Nasal Cannula 3 09/15/21 14:32 Nasal Cannula 3 09/15/21 14:30 18 145/72 (96) 93 Nasal Cannula 3 09/15/21 14:25 OxyMask 3 09/15/21 14:20 18 151/72 (98) 93 OxyMask 3 09/15/21 14:18 OxyMask 3 09/15/21 14:10 OxyMask 6 09/15/21 14:10 18 121/73 (89) 95 OxyMask 6 09/15/21 14:00 18 135/64 (87) 97 OxyMask 6 09/15/21 13:55 OxyMask 6 09/15/21 13:50 18 130/80 (97) 94 OxyMask 6 09/15/21 13:42 36.3 16 131/94 (106) 94 OxyMask 6 09/15/21 13:42 OxyMask 6 09/15/21 12:27 108 09/15/21 11:45 37.3 98 20 132/90 (104) 91 Room Air I & O 09/16/21 07:00 Intake Total 1210 ml Output Total 1000 ml Balance 210 ml Capillary Refill : Less Than 3 Seconds General Appearance: No Apparent Distress, WD/WN Neck: Normal Inspection, Supple Respiratory: No Accessory Muscle Use, No Respiratory Distress Cardiovascular: Regular Rate, Rhythm, No Edema Gastrointestinal: soft, tenderness Extremity: Normal Inspection, Normal Range of Motion Neurologic/Psychiatric: Alert, Oriented x3 Skin: Normal Color, Warm/Dry, Other (Abdominal incision C/D/I) Results Lab Laboratory Tests 09/16/21 06:15: White Blood Count 12.0H, Red Blood Count 4.09L, Hemoglobin 12.8L, Hematocrit 39L , Mean Corpuscular Volume 95, Mean Corpuscular Hemoglobin 31, Mean Corpuscular Hemoglobin Concent 33, Red Cell Distribution Width 14.7H, Platelet Count 167, Mean Platelet Volume 9.5, Sodium Level 140, Potassium Level 4.0, Chloride Level 109H, Carbon Dioxide Level 22, Anion Gap 9, Blood Urea Nitrogen 17, Creatinine 0.70, Estimat Glomerular Filtration Rate 108, BUN/Creatinine Ratio 24, Glucose Level 123H, Calcium Level 7.8L, Magnesium Level 1.8 Microbiology 09/15/21 MRSA Screen - Final, Complete MRSA not isolated 09/14/21 Urine Culture - Preliminary, Resulted Citrobacter koseri Assessment/Plan Assessment/Plan Assess & Plan/Chief Complaint An 80 year old male who is S/P small bowel resection for ischemic bowel VSS WBC 12.0 No bowel function yet - will start diet once bowel function resumes Continue IV abx, pain, nausea medication NGT JIMBO Walker URGENT CARE PHYSICIAN Sep 16, 2021 10:52
--- NOTE | 2021-09-16 11:30 | Progress Note - Hospitalist ---
Subjective HPI/CC On Admission Date Seen by Provider: Sep 16, 2021 Time Seen by Provider: 10:15 She is an 80-year-old male with past medical history of hypertension who presented to the ER due to abdominal pain. He is traveling across the country and is originally from [place] but over the last 2 days developed abdominal pain with nausea and vomiting. He reports no bowel movements or flatus in that timeframe either. Originally he reported he had no previous abdominal surgical history though now states he had a surgery in the [employer] many years ago but he is unsure what it is. That his symptoms were due to food po isoning from a restaurant that he ate at but everyone else was healthy and his symptoms persisted prompting him to seek evaluation in the emergency room. CT of his abdomen was done and revealed a small bowel obstruction with transition point in the left upper quadrant. Also they noted that the cecum did not have normal attachment in the right lower quadrant and was positioned in the right upper quadrant. This morning when I saw him he had just returned from his small bowel follow-through and was complaining of significant bloating and discomfort from that. Subjective/Events-last exam Pt reports feeling much better today. Distention has improved. Pain is under better control. No BM or flatus yet. Focused Exam Lactate Level 09/14/21 09:40: Lactic Acid Level 1.60 Objective Exam Vital Signs Vital Signs Date Time Temp Pulse Resp B/P (MAP) Pulse Ox O2 Delivery O2 Flow Rate FiO2 09/16/21 09:31 Nasal Cannula 3.00 09/16/21 08:00 37.1 75 15 168/77 (107) 92 Capillary Refill : Less Than 3 Seconds General Appearance: No Apparent Distress, WD/WN HEENT: Other (NGT in place) Respiratory: Lungs Clear, No Accessory Muscle Use Cardiovascular: Regular Rate, Rhythm, No Murmur Gastrointestinal: Normal Bowel Sounds, Distended (much improved), Tenderness (appropriately) Neurologic/Psychiatric: Alert, Oriented x3 Results/Procedures Lab Laboratory Tests 09/16/21 06:15 Patient resulted labs reviewed. Imaging: Reviewed Imaging Report Assessment/Plan Assessment and Plan Assess & Plan/Chief Complaint SBO Ischemic bowel POD #1 s/p bowel resection NGT in place still Continue pain regimen Await return of bowel function UTI Continue Rocephin await cultures- growing citrobacter not sepsis HTN Aa-fib Continue IV lopressor while NPO Cardiology consulted, appreciate recs Lovenox to start today, discussed with Dr Ballard Telemetry Elevated blood sugar Denies history of DMI Trend DVT ppx: SLovenox Diagnosis/Problems Diagnosis/Problems (1) Small bowel obstruction Status: Acute (2) Atrial fibrillation Status: Acute Qualifiers: Atrial fibrillation type: paroxysmal Qualified Codes: I48.0 - Paroxysmal atrial fibrillation (3) Essential (primary) hypertension Status: Chronic (4) Hyperglycemia Status: Acute (5) Acute cystitis without hematuria Status: Acute ISABEL THRASHER MD Sep 16, 2021 11:30
[2021-09-16] MEDS: ENOXAPARIN 100 MG/1 ML (LOVENOX) SYR SC SCH ×2 (12:49→20:23)
[2021-09-16] MEDS: cefTRIAXone 1,000 MG/SWFI 10 ML IV PUSH IV SCH ×2 (12:52)
--- NOTE | 2021-09-16 14:08 | Anesthesia-General Post-Op ---
General Patient Condition Mental Status/LOC: Same as Preop Cardiovascular: Satisfactory Nausea/Vomiting: Absent Respiratory: Satisfactory Pain: Controlled Complications: Absent Post Op Complications Complications None Follow Up Care/Instructions Patient Instructions None needed. Anesthesia/Patient Condition Patient Condition Patient is doing well, no complaints, stable vital signs, no apparent adverse anesthesia problems. No complications reported per nursing. LISA HYDE CRNA Sep 16, 2021 14:08
--- NOTE | 2021-09-16 15:49 | Progress Note - Cardiology ---
Cardiology SOAP Progress Note Subjective: No cp or palp or syncope No shortness of breath Gen tiredness and malaise No n/v/d Objective: I&O/Vital Signs 09/16/21 09/16/21 09/16/21 09/16/21 04:21 07:00 08:00 08:00 Temp 37.1 37.1 Pulse 75 80 75 Resp 15 15 B/P (MAP) 145/98 (114) 168/77 (107) Pulse Ox 92 92 O2 Delivery Nasal Cannula Nasal Cannula Nasal Cannula O2 Flow Rate 3.00 3.00 09/16/21 09/16/21 09/16/21 09/16/21 09:31 12:00 12:43 15:32 Temp 37.2 Pulse 86 85 Resp 18 B/P (MAP) 171/78 (109) 166/97 (120) Pulse Ox 92 O2 Delivery Nasal Cannula Nasal Cannula O2 Flow Rate 3.00 3.00 09/16/21 00:00 Intake Total 1210 ml Output Total 500 ml Balance 710 ml Constitutional: AAO x 3, well-developed, well-nourished Respiratory: No accessory muscle use, No respiratory distress; chest expansion is symmetric, chest is bilaterally symmetric, lungs clear to auscultation Cardiovascular: irregularly irregular; No JVD; S1 and S2 Gastrointestional: other (postoperative state, we did not palpate, no BS) Extremities: other (mild leg swelling); No clubbing, No cyanosis Neurologic/Psychiatric: oriented x 3, other (moves all limbs equally) Skin: No rash on exposed areas, No ulcerations on exposed areas Results/Procedures: Labs Laboratory Tests 09/16/21 06:15: White Blood Count 12.0H, Red Blood Count 4.09L, Hemoglobin 12.8L, Hematocrit 39L , Mean Corpuscular Volume 95, Mean Corpuscular Hemoglobin 31, Mean Corpuscular Hemoglobin Concent 33, Red Cell Distribution Width 14.7H, Platelet Count 167, Mean Platelet Volume 9.5, Sodium Level 140, Potassium Level 4.0, Chloride Level 109H, Carbon Dioxide Level 22, Anion Gap 9, Blood Urea Nitrogen 17, Creatinine 0.70, Estimat Glomerular Filtration Rate 108, BUN/Creatinine Ratio 24, Glucose Level 123H, Calcium Level 7.8L, Magnesium Level 1.8 Microbiology 09/15/21 MRSA Screen - Final, Complete MRSA not isolated 09/14/21 Urine Culture - Preliminary, Resulted Citrobacter koseri Procedures Laboratory Tests 09/15/21 05:20 09/16/21 06:15 A/P: Assessment: SBO - s/p ischemic bowel resection on 09/15/[address] Fink Sinus node dysfunction: wandering atrial pacemaker vs a-fib - Echo 09/15/21: LVEF 50-55%, mild conc LVH, PASP 30-35 mmHg HTN Chronic back pain Multiple surgeries - bilat knee replacements and shoulder surgeries 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
[2021-09-16] MEDS ORDERED: ONDANSETRON 4 MG/2 ML (SDV) Z0FRAN IVP PRN (23:30)
[2021-09-17] VITALS (7 sets, daily range): BP systolic 137–186; BP diastolic 64–86
[2021-09-17] MEDS: fentaNYL INJ 100 MCG/2 ML AMP IV PRN (00:40)
[2021-09-17] MEDS: NS IV 1000 ML 1,000 ML IV SCH ×3 (01:16→18:48)
[2021-09-17] MEDS: metroNIDAZOLE 500MG/100ML IVPB 100 ML IV SCH ×3 (03:15→20:26)
[2021-09-17] MEDS: meTOprolol 5 MG/5 ML (LOPRESSOR) VIAL IV SCH ×4 (06:03→23:17)
[2021-09-17 06:44] LABS: HEMATOCRIT 41 % (40-54); HEMOGLOBIN 13.5 g/dL (13.3-17.7); MEAN CORPUSCULAR HEMOGLOBIN 31 pg (25-34); MEAN CORPUSCULAR HGB CONC 33 g/dL (32-36); MEAN CORPUSCULAR VOLUME 95 fL (80-99); MEAN PLATELET VOLUME 9.6 fL (9.0-12.2); PLATELET COUNT 173 10^3/uL (130-400); WHITE BLOOD COUNT 10.9 10^3/uL (4.3-11.0)
[2021-09-17 07:19] LABS: ALBUMIN 3.1 GM/DL (3.2-4.5); BILIRUBIN,TOTAL 0.7 MG/DL (0.1-1.0); CALCIUM 8.1 MG/DL (8.5-10.1); CREATININE SERUM 0.7 MG/DL (0.60-1.30); POTASSIUM 3.8 MMOL/L (3.6-5.0); TOTAL PROTEIN 5.1 GM/DL (6.4-8.2)
[2021-09-17] MEDS: ENOXAPARIN 100 MG/1 ML (LOVENOX) SYR SC SCH ×2 (09:40→20:26)
--- NOTE | 2021-09-17 10:07 | Progress Note ---
Subjective Date Seen by a Provider: Sep 17, 2021 Time Seen by a Provider: 09:25 Subjective/Events-last exam Patient seen with Dr. Ballard. Patient reports well. Having several diarrhea stool today. No N/V. Minimal abdominal discomfort. Objective Exam Vital Signs Date Time Temp Pulse Resp B/P (MAP) Pulse Ox O2 Delivery O2 Flow Rate FiO2 09/17/21 09:59 Nasal Cannula 3.00 09/17/21 08:52 37.4 79 20 156/75 (102) 92 Nasal Cannula 3.00 09/17/21 07:00 70 09/17/21 04:27 37.2 78 20 161/86 (111) 92 Nasal Cannula 3.00 09/17/21 01:00 73 09/17/21 00:43 36.6 71 18 186/81 (116) 94 Nasal Cannula 3.00 09/16/21 20:00 Nasal Cannula 3.00 09/16/21 19:44 36.7 65 20 161/97 (118) 91 Nasal Cannula 3.00 09/16/21 19:00 80 09/16/21 15:52 37.1 80 20 166/97 (120) 92 Nasal Cannula 3.00 09/16/21 12:43 85 09/16/21 12:00 37.2 86 18 171/78 (109) 92 Nasal Cannula 3.00 I & O 09/17/21 07:00 Intake Total 1000 ml Output Total 1300 ml Balance -300 ml Capillary Refill : Less Than 3 Seconds General Appearance: No Apparent Distress, WD/WN Neck: Normal Inspection, Supple Respiratory: No Accessory Muscle Use, No Respiratory Distress Cardiovascular: Regular Rate, Rhythm, No Edema Gastrointestinal: normal bowel sounds, soft, tenderness, other (Abdominal incision C/D/I) Extremity: Normal Inspection, Normal Range of Motion Neurologic/Psychiatric: Alert, Oriented x3 Skin: Normal Color, Warm/Dry Results Lab Laboratory Tests 09/17/21 06:35: White Blood Count 10.9, Red Blood Count 4.35, Hemoglobin 13.5, Hematocrit 41, Mean Corpuscular Volume 95, Mean Corpuscular Hemoglobin 31, Mean Corpuscular Hemoglobin Concent 33, Red Cell Distribution Width 14.2, Platelet Count 173, Mean Platelet Volume 9.6, Sodium Level 141, Potassium Level 3.8, Chloride Level 108H, Carbon Dioxide Level 22, Anion Gap 11, Blood Urea Nitrogen 18, Creatinine 0.70, Estimat Glomerular Filtration Rate 108, BUN/Creatinine Ratio 26, Glucose Level 118H, Calcium Level 8.1L, Corrected Calcium 8.8, Total Bilirubin 0.7, Aspartate Amino Transf (AST/SGOT) 15, Alanine Aminotransferase (ALT/SGPT) 13, Alkaline Phosphatase 35L, Total Protein 5.1L, Albumin 3.1L Microbiology 09/15/21 MRSA Screen - Final, Complete MRSA not isolated 09/14/21 Urine Culture - Preliminary, Resulted Citrobacter koseri Assessment/Plan Assessment/Plan Assess & Plan/Chief Complaint An 80 year old male who is S/P small bowel resection for ischemic bowel VSS WBC 10.9 Will DC NGT and start clear liquids - will advance diet as tolerated Continue IV abx, pain, nausea medication JIMBO OZUNA ADDICTIONS COUNSELOR ASSISTANT Sep 17, 2021 10:06
--- NOTE | 2021-09-17 10:51 | Progress Note - Hospitalist ---
Subjective HPI/CC On Admission Date Seen by Provider: Sep 17, 2021 Time Seen by Provider: 10:49 She is an 80-year-old male with past medical history of hypertension who presented to the ER due to abdominal pain. He is traveling across the country and is originally from [place] but over the last 2 days developed abdominal pain with nausea and vomiting. He reports no bowel movements or flatus in that timeframe either. Originally he reported he had no previous abdominal surgical history though now states he had a surgery in the [employer] many years ago but he is unsure what it is. That his symptoms were due to food po isoning from a restaurant that he ate at but everyone else was healthy and his symptoms persisted prompting him to seek evaluation in the emergency room. CT of his abdomen was done and revealed a small bowel obstruction with transition point in the left upper quadrant. Also they noted that the cecum did not have normal attachment in the right lower quadrant and was positioned in the right upper quadrant. This morning when I saw him he had just returned from his small bowel follow-through and was complaining of significant bloating and discomfort from that. Subjective/Events-last exam Pt reports doing well today. Having BMs. 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 Had a few questions about what was seen in surgery to cause his illness. Advised him to clarify with Dr Fink regarding was he found during surgery. Objective Exam Vital Signs Vital Signs Date Time Temp Pulse Resp B/P (MAP) Pulse Ox O2 Delivery O2 Flow Rate FiO2 09/17/21 09:59 Nasal Cannula 3.00 09/17/21 08:52 37.4 79 20 156/75 (102) 92 Capillary Refill : Less Than 3 Seconds General Appearance: No Apparent Distress, WD/WN Respiratory: Lungs Clear, No Respiratory Distress Cardiovascular: Regular Rate, Rhythm, No Murmur Gastrointestinal: Normal Bowel Sounds, Non Tender, Soft Neurologic/Psychiatric: Alert, Oriented x3 Results/Procedures Lab Laboratory Tests 09/17/21 06:35 Patient resulted labs reviewed. Imaging: Reviewed Imaging Report Assessment/Plan Assessment and Plan Assess & Plan/Chief Complaint SBO Ischemic bowel POD #2 s/p bowel resection NGT in place still Continue pain regimen Passing BMs, NGT to be removed today UTI Continue Rocephin await cultures- growing citrobacter and sensitivities are still pending not sepsis HTN Aa-fib Continue IV lopressor while NPO Cardiology consulted, appreciate recs Lovenox started 09/16 Telemetry Elevated blood sugar Denies history of DM Trend, fasting blood sugar 118- will need outpatient follow up DVT ppx: Lovenox Diagnosis/Problems Diagnosis/Problems (1) Small bowel obstruction Status: Acute (2) Atrial fibrillation Status: Acute Qualifiers: Atrial fibrillation type: paroxysmal Qualified Codes: I48.0 - Paroxysmal atrial fibrillation (3) Essential (primary) hypertension Status: Chronic (4) Hyperglycemia Status: Acute (5) Acute cystitis without hematuria Status: Acute ISABEL THRASHER MD Sep 17, 2021 10:51
[2021-09-17] MEDS: cefTRIAXone 1,000 MG/SWFI 10 ML IV PUSH IV SCH ×2 (11:45)
--- NOTE | 2021-09-17 14:41 | Progress Note - Cardiology ---
Cardiology SOAP Progress Note Subjective: No shortness of breath No cp or palp or syncope No n/v/d Gen weakness and malaise present Objective: I&O/Vital Signs 09/17/21 09/17/21 09/17/21 09/17/21 04:27 07:00 08:52 09:59 Temp 37.2 37.4 Pulse 78 70 79 Resp 20 20 B/P (MAP) 161/86 (111) 156/75 (102) Pulse Ox 92 92 O2 Delivery Nasal Cannula Nasal Cannula Nasal Cannula O2 Flow Rate 3.00 3.00 3.00 09/17/21 09/17/21 09/17/21 11:20 11:43 12:47 Temp 37.4 Pulse 78 69 Resp 18 B/P (MAP) 151/77 (101) Pulse Ox 97 O2 Delivery Nasal Cannula Nasal Cannula O2 Flow Rate 3.00 3.00 09/17/21 00:00 Intake Total 0 ml Output Total 1000 ml Balance -1000 ml Constitutional: AAO x 3, well-developed, well-nourished Respiratory: No accessory muscle use, No respiratory distress; chest expansion is symmetric, chest is bilaterally symmetric, lungs clear to auscultation Cardiovascular: irregularly irregular; No JVD; S1 and S2 Gastrointestional: other (postoperative state, we did not palpate, no BS) Extremities: other (mild leg swelling); No clubbing, No cyanosis Neurologic/Psychiatric: oriented x 3, other (moves all limbs equally) Skin: No rash on exposed areas, No ulcerations on exposed areas Results/Procedures: Labs Laboratory Tests 09/17/21 06:35: White Blood Count 10.9, Red Blood Count 4.35, Hemoglobin 13.5, Hematocrit 41, Mean Corpuscular Volume 95, Mean Corpuscular Hemoglobin 31, Mean Corpuscular Hemoglobin Concent 33, Red Cell Distribution Width 14.2, Platelet Count 173, Mean Platelet Volume 9.6, Sodium Level 141, Potassium Level 3.8, Chloride Level 108H, Carbon Dioxide Level 22, Anion Gap 11, Blood Urea Nitrogen 18, Creatinine 0.70, Estimat Glomerular Filtration Rate 108, BUN/Creatinine Ratio 26, Glucose Level 118H, Calcium Level 8.1L, Corrected Calcium 8.8, Total Bilirubin 0.7, Aspartate Amino Transf (AST/SGOT) 15, Alanine Aminotransferase (ALT/SGPT) 13, Alkaline Phosphatase 35L, Total Protein 5.1L, Albumin 3.1L Microbiology 09/15/21 MRSA Screen - Final, Complete MRSA not isolated 09/14/21 Urine Culture - Preliminary, Resulted Citrobacter koseri Laboratory Tests 09/16/21 06:15 09/17/21 06:35 A/P: Assessment: SBO - s/p ischemic bowel resection on 09/15/[address] Fink Sinus node dysfunction: wandering atrial pacemaker and questionable a fib - Echo 09/15/21: LVEF 50-55%, mild conc LVH, PASP 30-35 mmHg HTN Chronic back pain Multiple surgeries - bilat knee replacements and shoulder surgeries 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
[2021-09-17] MEDS ORDERED: oxyCODONE/APAP 7.5-325 MG (PERCOCET 7.5) TABLET PO PRN (17:30)
[2021-09-18] MEDS: metroNIDAZOLE 500MG/100ML IVPB 100 ML IV SCH ×3 (03:10→20:46)
[2021-09-18 03:11] VITALS: BP 147/77
[2021-09-18] MEDS: meTOprolol 5 MG/5 ML (LOPRESSOR) VIAL IV SCH (05:31)
[2021-09-18] MEDS: NS IV 1000 ML 1,000 ML IV SCH (05:38)
[2021-09-18 06:07] LABS: BASOPHILS % (AUTO) 0 % (0-10); EOSINOPHILS # (AUTO) 0.1 10^3/uL (0.0-0.3); EOSINOPHILS % (AUTO) 2 % (0-10); HEMATOCRIT 36 % (40-54); HEMOGLOBIN 11.6 g/dL (13.3-17.7); LYMPHOCYTES # (AUTO) 3.9 10^3/uL (1.0-4.0); LYMPHOCYTES % (AUTO) 47 % (12-44); MEAN CORPUSCULAR HEMOGLOBIN 31 pg (25-34); MEAN CORPUSCULAR HGB CONC 33 g/dL (32-36); MEAN CORPUSCULAR VOLUME 94 fL (80-99); MEAN PLATELET VOLUME 9.7 fL (9.0-12.2); MONOCYTES # (AUTO) 0.6 10^3/uL (0.0-1.0); MONOCYTES % (AUTO) 7 % (0-12); NEUTROPHILS # (AUTO) 3.7 10^3/uL (1.8-7.8); NEUTROPHILS % (AUTO) 44 % (42-75); PLATELET COUNT 170 10^3/uL (130-400); WHITE BLOOD COUNT 8.4 10^3/uL (4.3-11.0)
--- NOTE | 2021-09-18 07:20 | Progress Note - Surgery ---
SLOANCAROL 09/18/21 0720: Subjective Time Seen by a Provider: 07:00 Subjective/Events-last exam Patient seen at bedside this morning. He is post-op day 3 for small bowel resection. He complains of some reflux and inability to control bowels which presents as diarrhea. He states "they come on and I have to run to the commode." He has no nausea or vomiting. Review of Systems General: No Chills, No Fatigue HEENT: No Head Aches, No Visual Changes Pulmonary: No Dyspnea, No Cough Cardiovascular: No: Chest Pain, Edema Gastrointestinal: Diarrhea; No: Nausea, Vomiting, Abdominal Pain, Hematochezia Genitourinary: No Dysuria, No Frequency, No Incontinence Musculoskeletal: No: arm pain, leg pain Neurological: No: Weakness, Numbness Objective Exam Vital Signs Date Time Temp Pulse Resp B/P (MAP) Pulse Ox O2 Delivery O2 Flow Rate FiO2 09/18/21 03:11 37.1 62 18 147/77 (100) 97 Nasal Cannula 3.00 09/18/21 01:00 59 09/17/21 23:08 36.9 71 18 137/64 (88) 94 Nasal Cannula 3.00 09/17/21 20:39 Nasal Cannula 3.00 09/17/21 20:00 36.4 65 18 166/76 (106) 93 Nasal Cannula 3.00 09/17/21 19:00 71 09/17/21 16:00 36.7 71 18 158/73 (101) 97 Nasal Cannula 3.00 09/17/21 12:47 69 09/17/21 11:43 37.4 78 18 151/77 (101) 97 Nasal Cannula 3.00 09/17/21 11:20 Nasal Cannula 3.00 09/17/21 09:59 Nasal Cannula 3.00 09/17/21 08:52 37.4 79 20 156/75 (102) 92 Nasal Cannula 3.00 I & O 09/18/21 07:00 Intake Total 3060 ml Output Total 226 ml Balance 2834 ml Capillary Refill : Less Than 3 Seconds General Appearance: No Apparent Distress, WD/WN HEENT: PERRL/EOMI, Normal ENT Inspection Neck: Normal Inspection, Supple Respiratory: Chest Non Tender, Lungs Clear, Normal Breath Sounds, No Accessory Muscle Use, No Respiratory Distress Cardiovascular: Regular Rate, Rhythm, No Edema, Normal Peripheral Pulses Peripheral Pulses: 2+ Radial Pulses (R), 2+ Radial Pulses (L) Gastrointestinal: non tender, soft, other (Abdominal incision nonerythematous without ecchymosis ) Extremity: Normal Inspection, Normal Range of Motion Neurologic/Psychiatric: Alert, Oriented x3, No Motor/Sensory Deficits, Normal Mood/Affect Skin: Normal Color, Warm/Dry Lymphatic: No Adenopathy Results Lab Laboratory Tests 09/18/21 05:30: White Blood Count 8.4, Red Blood Count 3.79L, Hemoglobin 11.6L, Hematocrit 36L, Mean Corpuscular Volume 94, Mean Corpuscular Hemoglobin 31, Mean Corpuscular Hemoglobin Concent 33, Red Cell Distribution Width 13.8, Platelet Count 170, Mean Platelet Volume 9.7, Immature Granulocyte % (Auto) 1, Neutrophils (%) (Auto) 44, Lymphocytes (%) (Auto) 47H, Monocytes (%) (Auto) 7, Eosinophils (%) (Auto) 2, Basophils (%) (Auto) 0, Neutrophils # (Auto) 3.7, Lymphocytes # (Auto) 3.9, Monocytes # (Auto) 0.6, Eosinophils # (Auto) 0.1, Basophils # (Auto) 0.0, Immature Granulocyte # (Auto) 0.1 Microbiology 09/15/21 MRSA Screen - Final, Complete MRSA not isolated 09/14/21 Urine Culture - Final, Complete Citrobacter koseri Citrobacter koseri#2 Meds Item Value Date Time Pantoprazole 40 mg 09/18/21 0900 (Protonix DAILY/IV Injection) Oxycodone/ 1 each 09/17/21 1730 Acetaminophen Q4H PRN/PO (Percocet 7.5/ 325 Mg Tablet) Ondansetron HCl 4 mg 09/16/21 2330 (Zofran Q4H PRN/IVP 09/16/21 2338 Injection (Sdv)) Enoxaparin Sodium 90 mg 09/16/21 1130 (Lovenox Q12HR/SC 09/17/212025 Injection) Metronidazole 100 ml @ 100 mls/hr 09/15/211999 Metoprolol 5 mg 09/15/21 1800 Tartrate Q6HR/IV 09/18/21 0531 (Lopressor Injection) Lactated Ringer's 1,000 ml @ 0 mls/hr 09/15/21 1230 Ceftriaxone 10 ml @ 200 mls/hr 09/15/21 1200 Sodium 1000 mg/ Q24H/IV 09/17/21 1145 Sterile Water Sodium Chloride 10-40 ML 09/14/21 1415 (Catheter Flush NEEDED PRN/IV Syringe) Fentanyl Citrate 50 mcg 09/14/21 1415 (Sublimaze Q3H PRN/IV 09/17/21 0040 Injection) Sodium Chloride 1,000 ml @ 100 mls/hr 09/14/21 1415 Assessment/Plan Assessment/Plan Assessment/Plan An 80 year old male who is post-op day 3 for small bowel resection for ischemic bowel NGT discontinued, on liquid diet, advance diet as tolerated Continue ceftriaxone and metronidazole Continue pain management Continue nausea medication as needed GERD Consider alternate PPI or increasing the dose due to complaints of reflux with certain foods Continue metoprolol for rhythm and pressure control per cardiology recommendations PARTH FINK DO 09/18/21 1441: Subjective Subjective/Events-last exam Patient pain controlled. +bowel function. tolerating clears. having diarrhea Denies n/v fever sweats chills shortness of breath or chest pain. Objective Exam General Appearance: No Apparent Distress, WD/WN HEENT: PERRL/EOMI, Normal ENT Inspection Neck: Normal Inspection, Supple Respiratory: Chest Non Tender, No Accessory Muscle Use, No Respiratory Distress Cardiovascular: Regular Rate, Rhythm, No JVD Gastrointestinal: non tender, soft, other (Abdominal incision nonerythematous without ecchymosis c/d/i) Neurologic/Psychiatric: Alert, Oriented x3, No Motor/Sensory Deficits, Normal Mood/Affect Skin: Normal Color, Warm/Dry Lymphatic: No Adenopathy Assessment/Plan Assessment/Plan Assessment/Plan An 80 year old male who is post-op day 3 for small bowel resection for ischemic bowel NGT discontinued, on liquid diet, advance diet as tolerated Continue ceftriaxone and metronidazole Continue pain management Continue nausea medication as needed GERD Likely home tomorrow Supervisory-Addendum Brief Verification & Attestation Participated in pt care: history, MDM, physical Personally performed: exam, history, MDM, supervision of care Care discussed with: Medical Student Procedures: n/a Results interpretation: Verified all documentation Verification and Attestation of Medical Student E/M Service A medical student performed and documented this service in my presence. I reviewed and verified all information documented by the medical student and made modifications to such information, when appropriate. I personally performed the physical exam and medical decision making. Parth Fink, Sep 18, 2021,14:41 CAROL LISA Sep 18, 2021 07:20 PARTH FINK DO Sep 18, 2021 14:41
[2021-09-18 07:41] VITALS: BP 174/79
[2021-09-18] MEDS ORDERED: CALCIUM CARB + VIT D 600 MG (CALCARB + D) TAB ONE (07:55)
[2021-09-18] MEDS: ENOXAPARIN 100 MG/1 ML (LOVENOX) SYR SC SCH ×2 (08:02→20:46)
[2021-09-18] MEDS: PANTOPRAZOLE 40 MG (PROTONIX) VIAL IV SCH (08:02)
[2021-09-18] MEDS: cefTRIAXone 1,000 MG/SWFI 10 ML IV PUSH IV SCH ×2 (11:09)
[2021-09-18 11:39] VITALS: BP_SYST 141; BP_SYST 163; BP_DIAS 79; BP_DIAS 93
--- NOTE | 2021-09-18 12:13 | Progress Note - Hospitalist ---
Subjective HPI/CC On Admission Date Seen by Provider: Sep 18, 2021 Time Seen by Provider: 12:09 She is an 80-year-old male with past medical history of hypertension who presented to the ER due to abdominal pain. He is traveling across the country and is originally from [place] but over the last 2 days developed abdominal pain with nausea and vomiting. He reports no bowel movements or flatus in that timeframe either. Originally he reported he had no previous abdominal surgical history though now states he had a surgery in the [employer] many years ago but he is unsure what it is. That his symptoms were due to food po isoning from a restaurant that he ate at but everyone else was healthy and his symptoms persisted prompting him to seek evaluation in the emergency room. CT of his abdomen was done and revealed a small bowel obstruction with transition point in the left upper quadrant. Also they noted that the cecum did not have normal attachment in the right lower quadrant and was positioned in the right upper quadrant. This morning when I saw him he had just returned from his small bowel follow-through and was complaining of significant bloating and discomfort from that. Subjective/Events-last exam Pt reports doing well but having diarrhea. RN reports no episodes of diarrhea today though. Seems to have resolved since overnight. Pain controlled. Objective Exam Vital Signs Vital Signs Date Time Temp Pulse Resp B/P (MAP) Pulse Ox O2 Delivery O2 Flow Rate FiO2 09/18/21 11:40 98 Nasal Cannula 3.00 09/18/21 11:39 37.2 67 18 163/79 (107) Capillary Refill : Less Than 3 Seconds General Appearance: No Apparent Distress, WD/WN, Obese Respiratory: Lungs Clear, No Respiratory Distress Cardiovascular: Regular Rate, Rhythm, No Murmur Gastrointestinal: Normal Bowel Sounds, Soft Neurologic/Psychiatric: Alert, Oriented x3 Results/Procedures Lab Laboratory Tests 09/18/21 05:30 Patient resulted labs reviewed. Imaging: Reviewed Imaging Report Assessment/Plan Assessment and Plan Assess & Plan/Chief Complaint SBO Ischemic bowel POD #3 s/p bowel resection NGT removed 09/17, doing well with current diet Continue pain regimen Discussed with Dr Fink, advancing diet today, if doing well with this can likely DC tomorrow Consider c diff study if diarrhea recurs UTI Continue Rocephin- completes 5th dose today await cultures- growing citrobacter and sensitive to Rocephin not sepsis HTN A-fib Switch to oral metoprolol now that he can take oral Cardiology consulted, appreciate recs Lovenox started 09/16 Telemetry Elevated blood sugar Denies history of DM Trend, fasting blood sugar 118- will need outpatient follow up DVT ppx: Lovenox Diagnosis/Problems Diagnosis/Problems (1) Small bowel obstruction Status: Acute (2) Atrial fibrillation Status: Acute Qualifiers: Atrial fibrillation type: paroxysmal Qualified Codes: I48.0 - Paroxysmal atrial fibrillation (3) Essential (primary) hypertension Status: Chronic (4) Hyperglycemia Status: Acute (5) Acute cystitis without hematuria Status: Acute ISABEL THRASHER MD Sep 18, 2021 12:13
[2021-09-18 15:38] VITALS: BP 156/70
--- NOTE | 2021-09-18 16:43 | Progress Note - Cardiology ---
Cardiology SOAP Progress Note Subjective: No cp or palp or syncope No shortness of breath at rest No n/v/d Gen malaise and weakness Objective: I&O/Vital Signs 09/18/21 09/18/21 09/18/21 09/18/21 07:00 07:41 08:21 11:39 Temp 36.6 37.2 Pulse 61 62 67 Resp 20 18 B/P (MAP) 174/79 (110) 163/79 (107) Pulse Ox 95 96 O2 Delivery Room Air Nasal Cannula Room Air O2 Flow Rate 3.00 09/18/21 09/18/21 09/18/21 11:40 13:00 15:38 Temp 37.2 Pulse 70 74 Resp 18 B/P (MAP) 156/70 (98) Pulse Ox 98 92 O2 Delivery Nasal Cannula Room Air O2 Flow Rate 3.00 09/18/21 00:00 Intake Total 1560 ml Output Total 226 ml Balance 1334 ml Constitutional: AAO x 3, well-developed, well-nourished Respiratory: No accessory muscle use, No respiratory distress; chest expansion is symmetric, chest is bilaterally symmetric, lungs clear to auscultation Cardiovascular: irregularly irregular; No JVD; S1 and S2 Gastrointestional: other (postoperative state, we did not palpate, no BS) Extremities: other (mild leg swelling); No clubbing, No cyanosis Neurologic/Psychiatric: oriented x 3, other (moves all limbs equally) Skin: No rash on exposed areas, No ulcerations on exposed areas Results/Procedures: Labs Laboratory Tests 09/18/21 05:30: White Blood Count 8.4, Red Blood Count 3.79L, Hemoglobin 11.6L, Hematocrit 36L, Mean Corpuscular Volume 94, Mean Corpuscular Hemoglobin 31, Mean Corpuscular Hemoglobin Concent 33, Red Cell Distribution Width 13.8, Platelet Count 170, Mean Platelet Volume 9.7, Immature Granulocyte % (Auto) 1, Neutrophils (%) (Au to) 44, Lymphocytes (%) (Auto) 47H, Monocytes (%) (Auto) 7, Eosinophils (%) (Auto) 2, Basophils (%) (Auto) 0, Neutrophils # (Auto) 3.7, Lymphocytes # (Auto) 3.9, Monocytes # (Auto) 0.6, Eosinophils # (Auto) 0.1, Basophils # (Auto) 0.0, Immature Granulocyte # (Auto) 0.1 Microbiology 09/15/21 MRSA Screen - Final, Complete MRSA not isolated 09/14/21 Urine Culture - Final, Complete Citrobacter koseri Citrobacter koseri#2 A/P: Assessment: SBO - s/p ischemic bowel resection on 09/15/[address] Fink Sinus node dysfunction: wandering atrial pacemaker and questionable a fib - Echo 09/15/21: LVEF 50-55%, mild conc LVH, PASP 30-35 mmHg HTN Chronic back pain Multiple surgeries - bilat knee replacements and shoulder surgeries 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
[2021-09-18 19:27] VITALS: BP 174/74
[2021-09-18] MEDS ORDERED: meTOprolol TARTRATE 25 MG (LOPRESSOR) TABLET PO SCH ×2 (21:00)
[2021-09-19] VITALS: BP 151/70
[2021-09-19] MEDS: metroNIDAZOLE 500MG/100ML IVPB 100 ML IV SCH (03:50)
[2021-09-19 04:00] VITALS: BP 158/69
--- NOTE | 2021-09-19 07:20 | Progress Note - Surgery ---
KRYSTIN SZYMANSKI MED STUDENT 09/19/21 0720: Subjective Date Seen by a Provider: Sep 19, 2021 Time Seen by a Provider: 06:40 Subjective/Events-last exam Patient is seen at bedside. He is sitting up comfortable. Says he has no pain. He was tolerating diet without n/v. He does report his appetite is "low". He is urinating appropriately without difficulty. He is having multiple bms without blood, mostly liquid, but patient states "they have slowed down" when compared to yesterday. He denies fevers, chills, sweats, chest pain, palpations, shortness of breath or new cough. Review of Systems General: No Chills, No Night Sweats HEENT: No Visual Changes, No Sinus Congestion Pulmonary: No Dyspnea, No Cough Cardiovascular: No: Chest Pain, Palpitations Gastrointestinal: No: Nausea, Vomiting, Abdominal Pain Genitourinary: No Dysuria, No Hematuria Musculoskeletal: No: other (denies current msk pains) Neurological: No: Numbness, Change in speech Objective Exam Vital Signs Date Time Temp Pulse Resp B/P (MAP) Pulse Ox O2 Delivery O2 Flow Rate FiO2 09/19/21 04:00 36.5 68 20 158/69 (98) 95 Room Air 09/19/21 01:00 67 09/19/21 00:00 36.5 68 18 151/70 (97) 94 Room Air 09/18/21 20:46 Room Air 09/18/21 19:27 37.1 78 24 174/74 (107) 94 Room Air 09/18/21 19:00 70 09/18/21 15:38 37.2 74 18 156/70 (98) 92 Room Air 09/18/21 13:00 70 09/18/21 11:40 98 Nasal Cannula 3.00 09/18/21 11:39 37.2 67 18 163/79 (107) 96 Room Air 09/18/21 08:21 Nasal Cannula 3.00 09/18/21 07:41 36.6 62 20 174/79 (110) 95 Room Air I & O 09/19/21 07:00 Intake Total 1550 ml Balance 1550 ml Capillary Refill : Less Than 3 Seconds General Appearance: No Apparent Distress, WD/WN HEENT: PERRL/EOMI, Moist Mucous Membranes Neck: Normal Inspection, Supple Respiratory: Chest Non Tender, No Accessory Muscle Use, No Respiratory Distress Cardiovascular: Regular Rate, Rhythm, No JVD Peripheral Pulses: 2+ Radial Pulses (R), 2+ Radial Pulses (L) Gastrointestinal: non tender, soft, other (Abdominal incision nonerythematous without ecchymosis c/d/i) Extremity: Normal Inspection, Normal Range of Motion Neurologic/Psychiatric: Alert, Oriented x3, No Motor/Sensory Deficits, Normal Mood/Affect Skin: Normal Color, Warm/Dry Lymphatic: No Adenopathy Results Lab Microbiology 09/15/21 MRSA Screen - Final, Complete MRSA not isolated 09/14/21 Urine Culture - Final, Complete Citrobacter koseri Citrobacter koseri#2 Assessment/Plan Assessment/Plan Assessment/Plan post-op day 4 Ex lap with small bowel resection for ischemic bowel s/p small bowel obstruction GERD Continue ceftriaxone and metronidazole, consider changing to augmentin on DC continue for 3x days Continue pain management Continue nausea medication as needed continue pantoprazole Patients main concern is continence of his bowels, he should be discharged this afternoon 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 He is tolerating diet. Patient not having any significant pain. Its controlled. Patient having bowel function. Patient was having loose stools this is improved. Patient denies any difficulty breathing denies any nausea vomiting fever sweats chills shortness of breath or chest pain at this time. Objective Exam General Appearance: No Apparent Distress HEENT: PERRL/EOMI, Normal ENT Inspection Neck: Normal Inspection, Supple Respiratory: Chest Non Tender, No Accessory Muscle Use, No Respiratory Distress Cardiovascular: Regular Rate, Rhythm, No JVD Gastrointestinal: non tender, soft, other (Abdominal incision nonerythematous without ecchymosis c/d/i) Extremity: Normal Inspection, Normal Range of Motion Neurologic/Psychiatric: Alert, Oriented x3, No Motor/Sensory Deficits, Normal Mood/Affect Skin: Normal Color, Warm/Dry Lymphatic: No Adenopathy Assessment/Plan Assessment/Plan Assessment/Plan Status post exploratory laparotomy small bowel resection for ischemic bowel, GERD Patient tolerating diet and having bowel function. His pain is under control. Okay to DC home at this time. Patient will need aleks out in approximately 2 weeks. Patient is leaving the state for traveling as he was traveling through here when symptoms occurred. Patient was instructed to follow-up with either an urgent care or ER in 2 weeks to have aleks removed. He can call and have pathology results. If he has any issues before that be seen at that time. Patient understands and agrees with plan. Supervisory-Addendum Brief Verification & Attestation Participated in pt care: history, MDM, physical Personally performed: exam, history, MDM, supervision of care Care discussed with: Medical Student Procedures: n/a Results interpretation: Verified all documentation Verification and Attestation of Medical Student E/M Service A medical student performed and documented this service in my presence. I reviewed and verified all information documented by the medical student and made modifications to such information, when appropriate. I personally performed the physical exam and medical decision making. Lizette Fink, Sep 19, 2021,21:30 KRYSTIN SZYMANSKI MED STUDENT Sep 19, 2021 07:20 LIZETTE FINK DO Sep 19, 2021 21:30
[2021-09-19 08:38] VITALS: BP 173/84
--- NOTE | 2021-09-19 09:23 | Discharge Summary ---
Diagnosis/Chief Complaint Date of Admission Sep 14, 2021 at 13:43 Date of Discharge Admission Diagnosis [facility] Primary Care No,Local Physician Discharge Diagnosis (1) Small bowel obstruction Status: Acute (2) Atrial fibrillation Status: Acute (3) Essential (primary) hypertension Status: Chronic (4) Hyperglycemia Status: Acute (5) Acute cystitis without hematuria Status: Acute Discharge Summary Discharge Physical Exam Allergies: Coded Allergies: No Known Drug Allergies (Unverified , 09/14/21) Vitals & I&Os Vital Signs Date Time Temp Pulse Resp B/P (MAP) Pulse Ox O2 Delivery O2 Flow Rate FiO2 09/19/21 08:38 35.9 66 18 173/84 (113) 93 Room Air 09/18/21 11:40 3.00 General Appearance: No Apparent Distress, WD/WN Respiratory: Lungs Clear, No Respiratory Distress Cardiovascular: Regular Rate, Rhythm, No Murmur Neurologic/Psychiatric: Alert, Oriented x3 Hospital Course Patient was admitted secondary to small bowel obstruction and ultimately underwent ex lap with Dr. 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 Following surgery he did very well and had quick return of bowel function. In fact he had multiple liquid stools and C. difficile was checked which was negative. He was able to tolerate a normal diet and was ambulating in his room without difficulty. He was incidentally found to have a urinary tract infection and treatment with Rocephin was completed in the hospital. He was discharged in stable and improved condition. Labs (last 24 hrs) Microbiology 09/18/21 C. difficile GDH Antigen & Toxins - Final, Complete 09/15/21 MRSA Screen - Final, Complete MRSA not isolated 09/14/21 Urine Culture - Final, Complete Citrobacter koseri Citrobacter koseri#2 Patient resulted labs reviewed. Imaging: Reviewed Imaging Report Discussion & Recommendations Discharge Planning: >30 minutes discharge planning Discharge Home Medications: Active Scripts Active Reported Eye Multivitamin Tablet (Vit A/Vit C/Vit E/Zinc/Copper) 1 Each Tablet 1 Each PO DAILY Neurontin (Gabapentin) 300 Mg Capsule 600 Mg PO DAILY TAKES 2 (300MG) CAPS Oxycodone HCl 5 Mg Tablet 5 Mg PO BID PRN Prilosec Otc (Omeprazole Magnesium) 20 Mg Tablet.dr 20 Mg PO DAILY Amlodipine Besylate 10 Mg Tablet 10 Mg PO DAILY Instructions to patient/family Please see electronic discharge instructions given to patient. Problem Qualifiers (1) Atrial fibrillation: Atrial fibrillation type: paroxysmal Qualified Codes: I48.0 - Paroxysmal atrial fibrillation ISABEL THRASHER MD Sep 19, 2021 09:23
[2021-09-19] MEDS ORDERED: amLODIPine 5 MG (NORVASC) TAB PO ONE (09:45)
[2021-09-19] MEDS: LOPERAMIDE 2 MG (IMODIUM) TABLET PO PRN ×2 (09:58→13:44)
[2021-09-19] MEDS: ENOXAPARIN 100 MG/1 ML (LOVENOX) SYR SC SCH (09:59)
[2021-09-19] MEDS: PANTOPRAZOLE 40 MG (PROTONIX) VIAL IV SCH (09:59)
--- NOTE | 2021-09-19 10:06 | Progress Note - Cardiology ---
Cardiology SOAP Progress Note Subjective: Sitting up in recliner at the bedside Taking oral intake No c/o CP, SOB or abdominal pain Objective: I&O/Vital Signs 09/19/21 09/19/21 09/19/21 09/19/21 00:00 01:00 04:00 07:00 Temp 36.5 36.5 Pulse 68 67 68 77 Resp 18 20 B/P (MAP) 151/70 (97) 158/69 (98) Pulse Ox 94 95 O2 Delivery Room Air Room Air 09/19/21 08:38 Temp 35.9 Pulse 66 Resp 18 B/P (MAP) 173/84 (113) Pulse Ox 93 O2 Delivery Room Air 09/19/21 00:00 Intake Total 1050 ml Balance 1050 ml Constitutional: AAO x 3, well-developed, well-nourished Respiratory: No accessory muscle use, No respiratory distress; chest expansion is symmetric, chest is bilaterally symmetric, lungs clear to auscultation Cardiovascular: irregularly irregular; No JVD; S1 and S2 Gastrointestional: audible bowel sounds, other (postoperative state, we did not palpate) Extremities: other (mild leg swelling); No clubbing, No cyanosis Neurologic/Psychiatric: oriented x 3, other (moves all limbs equally) Skin: No rash on exposed areas, No ulcerations on exposed areas Results/Procedures: Labs Microbiology 09/18/21 C. 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
[2021-09-19] MEDS ORDERED: CEPH500T PO (11:21)
[2021-09-19] MEDS ORDERED: AMLO-250 PO (11:21)
[2021-09-19] MEDS ORDERED: APIX5TAB PO (11:21)
[2021-09-19] MEDS ORDERED: MTP25TSR PO (11:21)
[2021-09-19] MEDS ORDERED: METR-145 PO (11:21)
--- NOTE | 2021-09-19 11:28 | Discharge Inst-Simple/Standard ---
Discharge Inst-Standard Discharge Medications New, Converted or Re-Newed RX: RX on Chart Patient Instructions/Follow Up Plan of Care/Instructions/FU: Please continue to take your medications as written. Please follow up with your primary care doctor to follow up this hospital stay. Please follow up per Dr Fink's instructions regarding your surgical wound. Activity as Tolerated: Yes Discharge Diet: No Restrictions Return to The Hospital For: abdominal pain, fever, weakness, confusion, chest pain, shortness of breath, heart racing, if you feel you are getting worse. ISABEL THRASHER MD Sep 19, 2021 11:28
[2021-09-19 11:34] VITALS: BP 103/58
[2021-09-19] MEDS ORDERED: metroNIDAZOLE 500 MG (FLAGYL) TAB PO SCH (13:00)
[2021-09-19 16:00] VITALS: BP 156/83
--- NOTE | 2021-09-19 16:42 | Progress Note - Cardiology ---
Cardiology SOAP Progress Note Subjective: No cp or palp or syncope or shortness of breath at rest No n/v/d Gen weakness and malaise Objective: I&O/Vital Signs 09/19/21 09/19/21 09/19/21 09/19/21 07:00 08:38 09:00 11:34 Temp 35.9 37.4 Pulse 77 66 67 Resp 18 20 B/P (MAP) 173/84 (113) 103/58 (73) Pulse Ox 93 93 O2 Delivery Room Air Room Air Room Air 09/19/21 09/19/21 09/19/21 13:00 15:38 16:00 Temp 37.2 Pulse 53 55 Resp 18 B/P (MAP) 156/83 (107) Pulse Ox 96 O2 Delivery Room Air 09/19/21 00:00 Intake Total 1050 ml Balance 1050 ml Constitutional: AAO x 3, well-developed, well-nourished Respiratory: No accessory muscle use, No respiratory distress; chest expansion is symmetric, chest is bilaterally symmetric, lungs clear to auscultation Cardiovascular: irregularly irregular; No JVD; S1 and S2 Gastrointestional: audible bowel sounds, other (postoperative state, we did not palpate) Extremities: other (mild leg swelling); No clubbing, No cyanosis Neurologic/Psychiatric: oriented x 3, other (moves all limbs equally) Skin: No rash on exposed areas, No ulcerations on exposed areas Results/Procedures: Labs Microbiology 09/18/21 C. 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
[2021-09-19] MEDS ORDERED: APIXABAN 5 MG (ELIQUIS) TABLET PO SCH (21:00)
[2021-09-20] MEDS ORDERED: amLODIPine 5 MG (NORVASC) TAB PO SCH (09:00)
[2021-09-20] MEDS ORDERED: PANTOPRAZOLE 40 MG (PROTONIX) TAB PO SCH (09:00)
== END 2021-09-19 18:00 | disposition home or self-care (01) | DRG 330 ==
LOC: ER FS 09:27 → 4TH 13:43
PROVIDERS: ADMIT Family Medicine; ATTEND Family Medicine
PROC: 0DB80ZZ Excision of Small Intestine, Open Approach (ICD-10-PCS; principal; 2021-09-15 12:17)
DX: K56.50 Intestinal adhesions [bands], unspecified as to partial versus complete obstruction (principal); K55.8 Other vascular disorders of intestine; N30.00 Acute cystitis without hematuria; I48.0 Paroxysmal atrial fibrillation; I10 Essential (primary) hypertension; R73.9 Hyperglycemia, unspecified; G62.9 Polyneuropathy, unspecified; M19.031 Primary osteoarthritis, right wrist; E86.0 Dehydration; I49.3 Ventricular premature depolarization; I49.5 Sick sinus syndrome; Z72.89 Other problems related to lifestyle; H54.7 Unspecified visual loss; K21.9 Gastro-esophageal reflux disease without esophagitis; Z87.891 Personal history of nicotine dependence
CPT/HCPCS: 36415; 71045; 74018; 74019; 74177; 74250; 80048; 80053; 80320; 81000; 83605; 83690; 83735; 84484; 85007; 85025; 85027; 85610; 85730; 87081; 87088; 87186; 87324; 87449; 93005; 93041; 93306; 94760